=== PATIENT | female | born 1995 | race Caucasian/White ===

== ENCOUNTER 2017-05-25 08:25 | Observation (INO) ==
[2017-05-25 09:25] LABS: Bilirubin,Urine Small (Negative); Blood,Urine Negative (Negative); Clarity,Urine Cloudy (Clear); Glucose,Urine (UA) Normal (Normal); Ketones,Urine Negative (Negative); Leukocyte Esterase,Urine Trace (Negative); Nitrite,Urine Negative (Negative); Protein,Urine 30 mg/dL (Neg-Trace); Specific Gravity,Urine 1.028 (1.010-1.025); Urobilinogen,Urine Normal (Normal)
[2017-05-25 09:27] LABS: Bacteria,Urine Moderate per hpf (None-Few); Squamous Epithelial Cell,Urine Many per lpf (None-Few)
[2017-05-25 09:29] LABS: Color,Urine Amber (Yellow)
[2017-05-25 09:37] LABS: Hyaline Casts,Urine Few per lpf (None-Few)
[2017-05-25] MEDS ORDERED: *HR* Morphine 2 MG/ML SYRINGE IVP ONE ×2 (09:39→12:04)
[2017-05-25] MEDS ORDERED: 0.9 % Sodium Chloride 1,000 ML IVC ONE (09:39)
[2017-05-25] MEDS ORDERED: Ondansetron 4 MG/2 ML VIAL IVP ONE ×2 (09:39→12:04)
--- NOTE | 2017-05-25 09:42 | Emergency Department Note ---
Disposition Clinical Impression: Colitis, Nausea and vomiting Disposition: Admitted As Inpatient Condition: Fair Time of Disposition: 13:00 Abdominal Pain HPI - General Chief Complaint: ED Abdominal Pain Stated Complaint: ABD Pain Time Seen by Provider: 05/25/17 09:18 Source: patient Mode of arrival: ambulatory Limitations: no limitations Nursing Notes Reviewed: Yes Vital Signs Reviewed: Yes - History of Present Illness HPI Narrative: Nontoxic-appearing 21-year-old female presents for complaints of diffuse lower abdominal pain, nausea, and vomiting that began yesterday evening and have been persistent since. She states that she had a 3 day episode of similar symptoms earlier last week however that resolved and she assumed that it was "just a stomach bug". She became concerned when symptoms returned last night. She denies any fever, chills, urinary symptoms, hematochezia, melena, diarrhea, or constipation. She denies any vaginal bleeding or vaginal discharge. She denies any known sick contacts or recent foreign travel. Alleviating factors for this pain are none. She states that the pain is aggravated by movement, however not with certain types of food. Pt Subjective Complaint: abdominal pain Onset (ago): day(s) (Since yesterday evening) Consistency: Worsening Location: LLQ, RLQ, suprapubic Pain Severity: moderate Pain Scale: 6 Quality: sharp Radiation: none Migration to: no migration Improves with: nothing Worsens with: movement Associated symptoms: Reports: nausea, vomiting. Denies: diarrhea, fever, chills , constipation, dysuria, hematemesis, hematochezia, melena, hematuria Treatments prior to arrival: none - Related Data Home Medications Medication Instructions Recorded Confirmed Levonorgestrel [Mirena] 52 mg IY AD 05/25/17 05/25/17 Allergies Allergy/AdvReac Type Severity Reaction Status Date / Time No Known Allergies Allergy Verified 05/25/17 13:43 All systems ED: reviewed and negative except as stated. Constitutional: Denies: fever, chills, weakness, weight change Eyes: Denies: eye pain, eye discharge, vision change ENT ED: Denies: ear pain, throat pain, dental pain, hearing loss, epistaxis, congestion, dysphagia Cardiovascular: Denies: chest pain, palpitations, dyspnea on exertion, edema, syncope Respiratory: Denies: cough, dyspnea, wheezes, hemoptysis, stridor Gastrointestinal: Reports: as per HPI, abdominal pain, nausea, vomiting. Denies : diarrhea, constipation, hematemesis, melena, hematochezia Genitourinary: Denies: dysuria, frequency, hematuria, discharge Musculoskeletal: Denies: back pain, neck pain, arthralgia, myalgia Integumentary: Denies: rash, abrasion, lesions Neurological: Denies: headache, weakness, numbness, paresthesias, confusion, abnormal gait, vertigo Psychiatric: Denies: anxiety, depression, suicidal thoughts, homicidal thoughts , auditory hallucinations, visual hallucinations Endocrine: Denies: fatigue Hematological/Lymphatic: Denies: easy bleeding, easy bruising Allergic/Immunologic: Denies: facial swelling, urticaria Abdominal Pain PMH - Past Medical History Medical history: Reports: non-contributory Female Surgical History: Reports: no surgical history Psychiatric history: Reports: no psych history - Social History Smoking status: Current every day smoker Alcohol use: Reports: occasionally Drug use: Reports: none Physical Exam - General Limitations: no limitations General appearance: alert, in no apparent distress - Head Head exam: atraumatic, normocephalic, normal inspection - Eye Eye exam: Present: normal appearance, PERRL, EOMI. Absent: nystagmus - ENT ENT exam: mucous membranes dry - Neck Neck exam: Present: normal inspection, full ROM, trachea midline. Absent: lymphadenopathy - Chest Chest inspection: Present: normal inspection, symmetric chest wall rise - Respiratory Respiratory exam: Present: normal lung sounds bilaterally. Absent: respiratory distress, wheezes, stridor, accessory muscle use, prolonged expiratory phase - Cardiovascular Cardiovascular exam: Present: regular rate, normal rhythm, normal heart sounds - Abdominal Exam Abdominal exam: Present: soft, tenderness, normal bowel sounds. Absent: distention, guarding, rebound, rigidity, organomegaly, psoas sign, obturator sign, heel tap sign, tenderness at McBurney's Point - Extremities Exam Extremities exam: Present: normal inspection, full ROM. Absent: tenderness, pedal edema - Neurological Exam Neurological exam: Present: alert, oriented X3 - Psychiatric Psychiatric exam: Present: normal affect, normal mood - Skin Skin exam: Present: warm, dry, intact, normal color Course Course Narrative: I discussed this patient's case with Dr. Daniel. Dr. Daniel has had a face-to -face evaluation with the patient. 1143: I spoke with Dr. Concepcion, general surgeon security operations manager regarding Dr. Daniel's concerns for intussusception. Dr. Concepcion has reviewed the patient's CT imaging and states that he does not feel that this is an intussusception. He states that this is most likely inflammation from probable Crohn's disease. He recommends gastroenterology consult for further management and treatment. I have paged Dr. Solis, stereoptic projection topographer security operations manager and awaiting a return call at this time. 1258: I have had a [id number] discussion with Dr. Winston, internal medicine resident working with Dr. Solis, gastroenterology. Dr. Winston has consult with Dr. Rutledge and it has been recommended that the patient be started on Cipro, Flagyl, and admitted to the hospital service with a gastroenterology consult. Dr. Winston states that Dr. Solis will prep the patient for a colonoscopy 2-3 days. 1315: I spoke with Dr. Blackman of the hospitalist service. Dr. Blackman accepts the patient for admission to his service for further treatment of her colitis/ terminal ileitis with gastroenterology consult. Vital Signs Temperature 97.9 F 05/25/17 08:57 Pulse Rate 111 05/25/17 08:57 Respiratory Rate 18 05/25/17 08:57 Blood Pressure 134/93 05/25/17 08:57 O2 Sat by Pulse Oximetry 96 05/25/17 08:57 Temperature 97.8 F 05/25/17 15:29 Pulse Rate 71 05/25/17 15:29 Respiratory Rate 18 05/25/17 15:29 Blood Pressure 116/77 05/25/17 15:29 O2 Sat by Pulse Oximetry 98 05/25/17 15:29 Oxygen Delivery Oxygen Delivery Room Air Abdominal Pain - Medical Records Medical records reviewed: Yes I reviewed the patient's medical records. - Lab Data Lab results reviewed: Yes I reviewed the patient's lab results. Lab results narrative: Laboratory Last Values WBC 14.1 K/mcL (4.3-11.1) H 05/25/17 09:51 RBC 5.26 M/mcL (3.82-4.97) H 05/25/17 09:51 Hgb 15.0 g/dL (11.5-15.4) 05/25/17 09:51 Hct 44.3 % (35.3-44.9) 05/25/17 09:51 MCV 84.2 fL (83.0-100.0) 05/25/17 09:51 MCH 28.5 pg (28.0-33.3) 05/25/17 09:51 MCHC 33.9 g/dL (31.6-35.5) 05/25/17 09:51 RDW 12.6 % (11.5-14.5) 05/25/17 09:51 Plt Count 380 K/mcL (140-400) 05/25/17 09:51 MPV 9.3 fL (9.4-12.4) L 05/25/17 09:51 Immature Gran % 0.4 % (0-4) 05/25/17 09:51 Seg Neutrophils % 78.9 % 05/25/17 09:51 Lymphocytes % 15.2 % 05/25/17 09:51 Monocytes % 5.1 % 05/25/17 09:51 Eosinophils % 0.3 % 05/25/17 09:51 Basophils % 0.1 % 05/25/17 09:51 Neutrophils # 11.1 K/mcL (1.6-8.9) H 05/25/17 09:51 Lymphocytes # 2.1 K/mcL (0.6-4.6) 05/25/17 09:51 Monocytes # 0.7 K/mcL (0.0-1.3) 05/25/17 09:51 Eosinophils # 0.0 K/mcL (0.0-0.6) 05/25/17 09:51 Basophils # 0.0 K/mcL (0.0-0.2) 05/25/17 09:51 Immature Plt Fraction 2.4 % (1.1-6.1) 05/25/17 09:51 Sodium 140 mEq/L (136-145) 05/25/17 09:51 Potassium 3.8 mEq/L (3.5-4.5) 05/25/17 09:51 Chloride 106 mEq/L (98-109) 05/25/17 09:51 Carbon Dioxide 21 mEq/L (19-29) 05/25/17 09:51 BUN 7 mg/dL (7-20) 05/25/17 09:51 Creatinine 0.74 mg/dL (0.57-1.11) 05/25/17 09:51 Est GFR ( Amer) > 60 (> 60) 05/25/17 09:51 Est GFR (Non-Af Amer) > 60 (> 60) 05/25/17 09:51 BUN/Creatinine Ratio 9 (6-26) 05/25/17 09:51 Glucose 119 mg/dL (70-99) H 05/25/17 09:51 Calculated Osmolality 289 (280-300) 05/25/17 09:51 Lactic Acid 1.1 mmol/L (0.5-2.2) 05/25/17 09:51 Calcium 9.5 mg/dL (8.6-10.8) 05/25/17 09:51 Total Bilirubin 0.9 mg/dL (0.2-1.2) 05/25/17 09:51 Direct Bilirubin 0.3 mg/dL (0.0-0.5) 05/25/17 09:51 Indirect Bilirubin 0.6 mg/dL (0.0-1.2) 05/25/17 09:51 AST 19 Units/L (5-34) 05/25/17 09:51 ALT 37 Units/L (0-55) 05/25/17 09:51 Alkaline Phosphatase 91 Units/L (38-126) 05/25/17 09:51 Serum Total Protein 8.1 g/dL (6.0-8.3) 05/25/17 09:51 Albumin 3.5 g/dL (3.5-5.0) 05/25/17 09:51 Globulin 4.6 g/dL (2.4-3.5) H 05/25/17 09:51 Albumin/Globulin Ratio 0.8 (1.1-2.2) L 05/25/17 09:51 Amylase 48 Units/L (25-125) 05/25/17 09:51 Lipase 16 Units/L (8-78) 05/25/17 09:51 Urine Color Olga (Yellow) A 05/25/17 09:08 Urine Clarity Cloudy (Clear) A 05/25/17 09:08 Urine pH 6.0 pH Units (5.0-8.0) 05/25/17 09:08 Ur Specific [place] 1.028 (1.010-1.025) H 05/25/17 09:08 Urine Protein 30 mg/dL (Neg-Trace) H 05/25/17 09:08 Urine Glucose (UA) Normal mg/dL (Normal) 05/25/17 09:08 Urine Ketones Negative mg/dL (Negative) 05/25/17 09:08 Urine Blood Negative (Negative) 05/25/17 09:08 Urine Nitrite Negative (Negative) 05/25/17 09:08 Urine Bilirubin Small (Negative) H 05/25/17 09:08 Urine Urobilinogen Normal mg/dL (Normal) 05/25/17 09:08 Ur Leukocyte Esterase Trace (Negative) H 05/25/17 09:08 Urine Microscopic WBC 5-15 per hpf (0-3) H 05/25/17 09:08 Ur Squamous Epith Cells Many per lpf (None-Few) H 05/25/17 09:08 Urine Bacteria Moderate per hpf (None-Few) H 05/25/17 09:08 Hyaline Casts Few per lpf (None-Few) 05/25/17 09:08 Ur Culture Indicated? YES (NO) A 05/25/17 09:08 Urine Test Negative (Negative) 05/25/17 09:08 Result diagrams: 05/25/17 09:51 05/25/17 09:51 Lab Results 05/25/17 05/25/17 05/25/17 Range/Units 09:08 09:08 09:51 WBC 14.1 H (4.3-11.1) K/mcL RBC 5.26 H (3.82-4.97) M/mcL Hgb 15.0 (11.5-15.4) g/dL Hct 44.3 (35.3-44.9) % MCV 84.2 (83.0-100.0) fL MCH 28.5 (28.0-33.3) pg MCHC 33.9 (31.6-35.5) g/dL RDW 12.6 (11.5-14.5) % Plt Count 380 (140-400) K/mcL MPV 9.3 L (9.4-12.4) fL Immature Gran % 0.4 (0-4) % Seg Neutrophils % 78.9 % Lymphocytes % 15.2 % Monocytes % 5.1 % Eosinophils % 0.3 % Basophils % 0.1 % Neutrophils # 11.1 H (1.6-8.9) K/mcL Lymphocytes # 2.1 (0.6-4.6) K/mcL Monocytes # 0.7 (0.0-1.3) K/mcL Eosinophils # 0.0 (0.0-0.6) K/mcL Basophils # 0.0 (0.0-0.2) K/mcL Immature Plt Fraction 2.4 (1.1-6.1) % Sodium (136-145) mEq/L Potassium (3.5-4.5) mEq/L Chloride (98-109) mEq/L Carbon Dioxide (19-29) mEq/L BUN (7-20) mg/dL Creatinine (0.57-1.11) mg/dL Est GFR ( Amer) (> 60) Est GFR (Non-Af Amer) (> 60) BUN/Creatinine Ratio (6-26) Glucose (70-99) mg/dL Calculated Osmolality (280-300) Lactic Acid (0.5-2.2) mmol/L Calcium (8.6-10.8) mg/dL Total Bilirubin (0.2-1.2) mg/dL Direct Bilirubin (0.0-0.5) mg/dL Indirect Bilirubin (0.0-1.2) mg/dL AST (5-34) Units/L ALT (0-55) Units/L Alkaline Phosphatase (38-126) Units/L Serum Total Protein (6.0-8.3) g/dL Albumin (3.5-5.0) g/dL Globulin (2.4-3.5) g/dL Albumin/Globulin Ratio (1.1-2.2) Amylase (25-125) Units/L Lipase (8-78) Units/L Urine Color Olga A (Yellow) Urine Clarity Cloudy A (Clear) Urine pH 6.0 (5.0-8.0) pH Units Ur Specific [place] 1.028 H (1.010-1.025) Urine Protein 30 H (Neg-Trace) mg/dL Urine Glucose (UA) Normal (Normal) mg/dL Urine Ketones Negative (Negative) mg/dL Urine Blood Negative (Negative) Urine Nitrite Negative (Negative) Urine Bilirubin Small H (Negative) Urine Urobilinogen Normal (Normal) mg/dL Ur Leukocyte Esterase Trace H (Negative) Urine Microscopic WBC 5-15 H (0-3) per hpf Ur Squamous Epith Cells Many H (None-Few) per lpf Urine Bacteria Moderate H (None-Few) per hpf Hyaline Casts Few (None-Few) per lpf Ur Culture Indicated? YES A (NO) Urine Test Negative (Negative) 05/25/17 05/25/17 Range/Units 09:51 09:51 WBC (4.3-11.1) K/mcL RBC (3.82-4.97) M/mcL Hgb (11.5-15.4) g/dL Hct (35.3-44.9) % MCV (83.0-100.0) fL MCH (28.0-33.3) pg MCHC (31.6-35.5) g/dL RDW (11.5-14.5) % Plt Count (140-400) K/mcL MPV (9.4-12.4) fL Immature Gran % (0-4) % Seg Neutrophils % % Lymphocytes % % Monocytes % % Eosinophils % % Basophils % % Neutrophils # (1.6-8.9) K/mcL Lymphocytes # (0.6-4.6) K/mcL Monocytes # (0.0-1.3) K/mcL Eosinophils # (0.0-0.6) K/mcL Basophils # (0.0-0.2) K/mcL Immature Plt Fraction (1.1-6.1) % Sodium 140 (136-145) mEq/L Potassium 3.8 (3.5-4.5) mEq/L Chloride 106 (98-109) mEq/L Carbon Dioxide 21 (19-29) mEq/L BUN 7 (7-20) mg/dL Creatinine 0.74 (0.57-1.11) mg/dL Est GFR ( Amer) > 60 (> 60) Est GFR (Non-Af Amer) > 60 (> 60) BUN/Creatinine Ratio 9 (6-26) Glucose 119 H (70-99) mg/dL Calculated Osmolality 289 (280-300) Lactic Acid 1.1 (0.5-2.2) mmol/L Calcium 9.5 (8.6-10.8) mg/dL Total Bilirubin 0.9 (0.2-1.2) mg/dL Direct Bilirubin 0.3 (0.0-0.5) mg/dL Indirect Bilirubin 0.6 (0.0-1.2) mg/dL AST 19 (5-34) Units/L ALT 37 (0-55) Units/L Alkaline Phosphatase 91 (38-126) Units/L Serum Total Protein 8.1 (6.0-8.3) g/dL Albumin 3.5 (3.5-5.0) g/dL Globulin 4.6 H (2.4-3.5) g/dL Albumin/Globulin Ratio 0.8 L (1.1-2.2) Amylase 48 (25-125) Units/L Lipase 16 (8-78) Units/L Urine Color (Yellow) Urine Clarity (Clear) Urine pH (5.0-8.0) pH Units Ur Specific [place] (1.010-1.025) Urine Protein (Neg-Trace) mg/dL Urine Glucose (UA) (Normal) mg/dL Urine Ketones (Negative) mg/dL Urine Blood (Negative) Urine Nitrite (Negative) Urine Bilirubin (Negative) Urine Urobilinogen (Normal) mg/dL Ur Leukocyte Esterase (Negative) Urine Microscopic WBC (0-3) per hpf Ur Squamous Epith Cells (None-Few) per lpf Urine Bacteria (None-Few) per hpf Hyaline Casts (None-Few) per lpf Ur Culture Indicated? (NO) Urine Test (Negative) - Radiology Data Radiology results reviewed: Yes I reviewed the patient's radiology results. Abdomen/Pelvis CT 05/25/17 10:16 IMPRESSION: There is circumferential wall thickening of the terminal ileum with a secondary suspected partial small bowel obstruction. Adjacent inflammatory change is seen within the mesentery, as well as several small reactive lymph nodes. There is also mild wall thickening of the cecum adjacent to the ileocecal valve. These changes could be related to underlying infectious or inflammatory enteritis, with Crohn's disease in the differential. Probable benign adnexal cyst on the left measuring 3.6 cm in size. Recommend a follow-up ultrasound in 6-12 weeks per ACR criteria for a premenopausal female given the size of the lesion. D/ / Tee Oshea MD / Tee Oshea MD Interpreting Provider: Tee Oshea MD Attestation Statement - Attestation Attestation: I, Leonid Daniel DO have provided [id number] time during the care of this patient. Detailed review the presentation, symptoms, medical history were discussed and reviewed with the mid-level provider Anup Ovalle PA-C/BAHMAN. Medical intervention labs and imaging studies were reviewed in detail. See full documentation of physical exam and course of care in the mid-level provider 's note. I agree with the determined course of care, medical intervention and disposition put forth by the mid-level provider. See below documentation for changes or alterations in documentation. 21-year-old female presents emergency room complaint of abdominal pain. She has had symptoms on and off for over a week but now they have isolated in the right lower quadrant the abdomen. She has difficulty with eating and drinking but has still been taking in by mouth fluids. Patient denies any concerns for vaginal discharge, sexual transmitted diseases or . She denies any concern for new sexual partners. Vital signs reviewed and showed tachycardia but otherwise are unremarkable. Patient will have fluids provided etiology medication pain medication while here. She will also have screening laboratory workup including urinalysis urine test CBC LFTs and lipase. She will then have CT imaging of the abdomen for definitive evaluation of her lower abdominal discomfort. She does not have any history of ovarian cysts. Clinical concern for ovarian torsion. She does not have pain in the adnexa. We will continue to monitor his treatment course is completed. See detailed documentation of the physical exam, medical intervention, medical decision- making and disposition in the mid-level provider's note 1100 Patient has concerning findings on CAT scan for possible bowel obstruction versus inflammatory changes. Patient was consults of the on-call surgeon. Recommend admission for symptomatic control and gastroenterology follow-up and further evaluation. No other concerns or issues noted in the treatment course and consultations. Patient stable to time of admission.
[2017-05-25 09:57] LABS: Basophils % 0.1 %; Eosinophils % 0.3 %; Hematocrit 44.3 % (35.3-44.9); Immature Granulocytes % 0.4 % (0-4); Immature Platelets 2.4 % (1.1-6.1); Lymphocytes # 2.1 K/mcL (0.6-4.6); Lymphocytes % 15.2 %; Mean Corpuscular HGB Conc 33.9 g/dL (31.6-35.5); Mean Corpuscular Hemoglobin 28.5 pg (28.0-33.3); Mean Corpuscular Volume 84.2 fL (83.0-100.0); Mean Platelet Volume 9.3 fL (9.4-12.4); Monocytes # 0.7 K/mcL (0.0-1.3); Monocytes % 5.1 %; Neutrophils # 11.1 K/mcL (1.6-8.9); Platelet Count 380 K/mcL (140-400); Red Blood Count 5.26 M/mcL (3.82-4.97); Red Cell Distribution Width 12.6 % (11.5-14.5); Segmented Neutrophils % 78.9 %
[2017-05-25 10:11] LABS: Alanine Aminotransferase 37 Units/L (0-55); Albumin 3.5 g/dL (3.5-5.0); Albumin/Globulin Ratio 0.8 (1.1-2.2); Alkaline Phosphatase 91 Units/L (38-126); Amylase 48 Units/L (25-125); Aspartate Amino Transferase 19 Units/L (5-34); BUN/Creatinine Ratio 9 (6-26); Bilirubin,Direct 0.3 mg/dL (0.0-0.5); Bilirubin,Indirect 0.6 mg/dL (0.0-1.2); Bilirubin,Total 0.9 mg/dL (0.2-1.2); Blood Urea Nitrogen 7 mg/dL (7-20); Calcium 9.5 mg/dL (8.6-10.8); Carbon Dioxide 21 mEq/L (19-29); Chloride 106 mEq/L (98-109); Globulin 4.6 g/dL (2.4-3.5); Glucose 119 mg/dL (70-99); Lipase 16 Units/L (8-78); Osmolality,Calculated 289 (280-300); Potassium 3.8 mEq/L (3.5-4.5); Sodium 140 mEq/L (136-145); Total Protein 8.1 g/dL (6.0-8.3); eGFR For African Americans > 60 (> 60); eGFR For Non-African Americans > 60 (> 60)
[2017-05-25] MEDS ORDERED: MetroNIDAZOLE 500 MG/100 ML 500 MG/100 ML BAG IVPB ONE (12:56)
--- NOTE | 2017-05-25 13:22 | Gastroenterology Consult Note ---
<Ariel Winston - Last Filed: 05/25/17 13:19> Date of Encounter: 05/25/17 Time of Encounter: 13:19 - Assessment and plan (1) Colitis Current Visit: Yes Status: Acute Assessment and plan: 21-year-old female with chronic diarrhea for greater than 5 months with change in symptoms to fevers chills diaphoresis abdominal pain and bloating constipation. No previous gastrointestinal diagnosis. - White blood cell count 14, neutrophil count 11.1, the rest of her laboratory results are nonsignificant. - Vitals are stable - CT of the abdomen and pelvis demonstrated circumferential wall thickening of the terminal ileum with a secondary suspected partial small bowel obstruction adjacent inflammatory changes of the mesentery, mild wall thickening of the cecum adjacent to the ileocecal valve. This is less likely to be viral or actual real in nature as this length that symptoms have been going on for roughly 5 months. Stool cultures to monitor for other significant factors such as CMV, parasite etiology. She will likely require colonoscopy with biopsies for evaluation for potential inflammatory bowel disease. Plan: - We will obtain stool cultures - Continue current antibiotic coverage and patient - Patient may require colonoscopy after further evaluation. - Time Spent With Patient Total time spent is greater than 50% in coordination of care (as documented) at patient's floor/unit and/or counseling patient: GI History of Present Illness - Data of Consult Consult date: 05/25/17 - Consult Narrative Reason for consult: colitis History of present illness: Ms. Dailey is a 21 year old female without significant past medical history presented to the emergency department with abdominal pain nausea and vomiting for roughly 1 week. Ms. Dailey states that roughly 5-6 months ago she started having diarrhea with roughly 5 loose stools per day and had been seen in the urgent care and was recommended to follow-up with gastroenterology if her symptoms continued. She never followed up but states that her diarrhea continued with having 5 loose stools per day occasionally preceded by urgency without abdominal pain, fevers chills nausea or bloating. She denies ever having blood in her stool, change in texture to dark or tarry in nature. Roughly one week ago she had an abrupt onset of lower abdominal pain described as aching and sharp associated with anorexia, nausea and vomiting. She states that she has been constipated for almost a full week since the symptoms started and had abdominal bloating, fevers chills and diaphoresis. She denies any stools today. She does not take any medications for her symptoms and denies recently being on any medications. She denies any previous gastrointestinal diagnosis, denies knowing of any preceding antibiotic use, acute illness or ingestion of new foods. She denies any major changes to her diet or addition of any new foods. With regarding her family history she denies any known relatives to have history of colon cancer, rectal bleeding, Crohn's or ulcerative colitis, or any family members with diarrhea. She waited until today to present to the emergency department due to lack of transportation. Colonoscopy: Denies previous history EGD: Denies previous history Past Med Surg Social Fam HX - Past Medical History Medical history: non-contributory Psychiatric history: no psych history - Past Surgical History Surgical History: non-contributory - Social History Smoking Status: Current every day smoker Smokeless Tobacco Status: No Alcohol use: occasionally Drug use: none - Gastrointestinal Gastrointestinal: Present: abdominal pain, bloating, change in bowel habits, constipation, diarrhea, nausea, vomiting. Absent: dyspepsia, heartburn, hematemesis, hematochezia, melena - Constitutional Constitutional: anorexia, no weight gain, no weight loss - EENT Nose, mouth and throat: Absent: dysphagia, sore throat - Cardiovascular Cardiovascular ROS: Absent: chest pain, irregular heart rhythm, palpitations - Respiratory Respiratory IM: Absent: cough, dyspnea, hemoptysis - Genitourinary Genitourinary: Absent: change in color, Urinary frequency - Neurological ROS Neurological GI: Absent: confusion, dizziness, headache(s) - Musculoskeletal Musculoskeletal ROS GI: Absent: back pain, joint swelling - Integumentary Integumentary GI: Absent: jaundice, pruritis, rash - Constitutional Vitals: Temp Pulse Resp BP Pulse Ox 97.9 F 73 18 128/78 96 05/25/17 08:57 05/25/17 12:48 05/25/17 12:48 05/25/17 12:48 05/25/17 12:48 General appearance: Present: cooperative, A&O X 3, pleasant, no acute distress Exam: General: Patient alert, awake, oriented 3, interactive, in no acute distress HEENT: Normocephalic, atraumatic, pupils equal reactive to light, neck supple trachea midline no palpable lymphadenopathy, no thyromegaly. Chest: Symmetric bilateral correlating with respiratory effort, effort nonlabored. Cardiac: Regular rate and rhythm, positive S1 and S2. no bruits appreciated bilateral carotids, Radial pulses 2+ bilateral, posterior tibial and dorsal pedal pulses 2+ bilateral. Respiratory: Clear to auscultation all lung burns Abdomen: Soft, nontender, positive bowel sounds, no palpable masses appreciated on examination Extremities: Symmetric bilateral, bilateral lower extremities without erythema or edema patient moving all 4 extremities spontaneously. Scars on bilateral wrists with previous history of cutting, no new noticeable lesions. Neurologic: No focal deficits appreciated on examination. Face symmetric, muscle strength symmetric bilateral upper and lower extremities. Results - Labs CBC & Chem 7: 05/25/17 09:51 11 09:51 Labs: Last Result Calcium 9.5 mg/dL (8.6-10.8) 05/25/17 09:51 Entire Visit Hgb 15.0 g/dL (11.5-15.4) 05/25/17 09:51 Hct 44.3 % (35.3-44.9) 05/25/17 09:51 Total Bilirubin 0.9 mg/dL (0.2-1.2) 05/25/17 09:51 AST 19 Units/L (5-34) 05/25/17 09:51 ALT 37 Units/L (0-55) 05/25/17 09:51 Amylase 48 Units/L (25-125) 05/25/17 09:51 Lipase 16 Units/L (8-78) 05/25/17 09:51 - Impressions Impressions Abdomen/Pelvis CT 05/25/17 10:16 IMPRESSION: There is circumferential wall thickening of the terminal ileum with a secondary suspected partial small bowel obstruction. Adjacent inflammatory change is seen within the mesentery, as well as several small reactive lymph nodes. There is also mild wall thickening of the cecum adjacent to the ileocecal valve. These changes could be related to underlying infectious or inflammatory enteritis, with Crohn's disease in the differential. Probable benign adnexal cyst on the left measuring 3.6 cm in size. Recommend a follow-up ultrasound in 6-12 weeks per ACR criteria for a premenopausal female given the size of the lesion. D/ / Tee Oshea MD / Tee Oshea MD Interpreting Provider: Tee Oshea MD Consult Discharge Plan - Plan <Cj Solis - Last Filed: 05/25/17 18:01> Date of Encounter: 05/25/17 Time of Encounter: 13:20 - Time Spent With Patient Total time spent is greater than 50% in coordination of care (as documented) at patient's floor/unit and/or counseling patient: GI History of Present Illness - Data of Consult Requesting Physician: Vic Oliveira MD - Consult Narrative History of present illness: Ms. Dailey is a 21 year old female - Constitutional Vitals: Temp Pulse Resp BP Pulse Ox 97.8 F 71 18 116/77 98 05/25/17 15:29 05/25/17 15:29 05/25/17 15:29 05/25/17 15:29 05/25/17 15:29 Results - Labs CBC & Chem 7: 05/25/17 09:51 05/25/17 09:51 Labs: Last Result Calcium 9.5 mg/dL (8.6-10.8) 05/25/17 09:51 Entire Visit Hgb 15.0 g/dL (11.5-15.4) 05/25/17 09:51 Hct 44.3 % (35.3-44.9) 05/25/17 09:51 Total Bilirubin 0.9 mg/dL (0.2-1.2) 05/25/17 09:51 AST 19 Units/L (5-34) 05/25/17 09:51 ALT 37 Units/L (0-55) 05/25/17 09:51 Amylase 48 Units/L (25-125) 05/25/17 09:51 Lipase 16 Units/L (8-78) 05/25/17 09:51 - Attending Attestation I examined this patient and my medical decision-making was reviewed with the Resident Physician. I agree with the documented findings, disposition and treatment plan as described except to the extent set forth below. Patient with long-standing history of chronic diarrhea, now with the vomiting and abdominal pain along with being constipated with CT finding of enteritis. Finding are suspicious for Crohn disease. Recommendation: Crohn serology, stool studies and the fluid along with the IV antibiotics. patient will need a colonoscopy in the next few days along with biopsies of terminal ileum
[2017-05-25] MEDS ORDERED: Ondansetron 4 MG/2 ML VIAL IVP PRN (14:42)
--- NOTE | 2017-05-25 14:50 | Internal Med History&Physical ---
Date of Encounter: 05/25/17 Time of Encounter: 14:57 Assessment and Plan (1) Terminal ileitis Current visit: Yes Status: Acute Recurrent lower abdominal pain vomiting fevers and chills. Will rule out infectious causes. Check stool studies for bacteria, overall, parasites, blood. Consider inflammatory bowel disease in the differential. Gastroenterology service on board. We will keep patient for now on ciprofloxacin on Flagyl. Keep NPO hydrate. Imaging shows small bowel dilation , no need for NG tube placement. Heparin and famotidine for DVT and peptic ulcer disease prophylaxis respectively. Qualifiers: Qualified Code(s): K50.00 - Crohn's disease of small intestine without complications (2) Ovarian cyst Current visit: Yes Status: Acute Patient has benign ovarian cyst. Outpatient follow up Qualifiers: Qualified Code(s): N83.209 - Unspecified ovarian cyst, unspecified side Internal Medicine - H&P: HPI Chief complaint: abdominal pain History of present illness: Ms. Dailey is a 21 year old female presented emergency room today with a main component of abdominal pain. For the past 2 days patient has been having pain across lower abdomen associated with bilious vomiting, subjective fevers and chills. Patient was unable to eat or keep food down. She denies diarrhea, hematemesis melena or hematochezia. She had similar problems a week earlier. She denies any family history of inflammatory bowel disease. No recent travel or sick contacts. Past Med Surg Social Fam HX - Past Medical History Medical history: non-contributory Psychiatric history: no psych history - Past Surgical History Surgical History: non-contributory - Social History Smoking Status: Current every day smoker Packs per day: 1 Smokeless Tobacco Status: No Alcohol use: none Drug use: none - Family History Mother History Unknown: Yes Internal Medicine - H&P: Meds Levonorgestrel [Mirena] 52 mg IY AD 05/25/17 [History] 3 Allergy/AdvReac Type Severity Reaction Status Date / Time No Known Allergies Allergy Verified 05/25/17 13:43 All Systems PM: A 10-system review of systems was performed and is negative for pertinent findings except as documented above in the HPI. Review of systems: 10 point review of systems is negative except for HPI - Constitutional Vitals: Temp Pulse Resp BP Pulse Ox 97.9 F 73 16 136/81 96 05/25/17 08:57 05/25/17 12:48 05/25/17 14:02 05/25/17 14:02 05/25/17 12:48 Exam: Gen.: patient is alert oriented times 3 cardiac: normal S1 S2 no additional sounds or murmurs chest: no active wheezing or bronchial breathing abdomen tenderness across lower abdomen, no rebound or guarding lower extremity no swelling. Neuro: no new focal deficits Internal Med - H&P Results - Labs CBC & Chem 7: 05/25/17 09:51 05/25/17 09:51
[2017-05-25] MEDS: Nicotine 21 MG PATCH.TD24 TD SCH (17:48)
[2017-05-25] MEDS: Famotidine 20 MG/2 ML VIAL IVP SCH (17:48)
[2017-05-25] MEDS: D5% in 0.9% NACL 1,000 ML IVC SCH (17:49)
[2017-05-25] MEDS: *HR* Morphine 2 MG/ML SYRINGE IVP PRN ×2 (17:57→23:05)
[2017-05-25] MEDS: *HR* Heparin 5,000 UNIT/ML VIAL SQ SCH (18:01)
[2017-05-25] MEDS: MetroNIDAZOLE 500 MG/100 ML 500 MG/100 ML BAG IVPB SCH (21:32)
[2017-05-26] MEDS: *HR* Morphine 2 MG/ML SYRINGE IVP PRN ×3 (04:12→16:14)
[2017-05-26 04:14] LABS: Basophils % 0.3 %; Eosinophils # 0.1 K/mcL (0.0-0.6); Eosinophils % 1.4 %; Hematocrit 39.2 % (35.3-44.9); Hemoglobin 12.9 g/dL (11.5-15.4); Immature Granulocytes % 0.6 % (0-4); Lymphocytes # 3.2 K/mcL (0.6-4.6); Lymphocytes % 35.2 %; Mean Corpuscular HGB Conc 32.9 g/dL (31.6-35.5); Mean Corpuscular Volume 85.2 fL (83.0-100.0); Mean Platelet Volume 9.7 fL (9.4-12.4); Monocytes # 0.7 K/mcL (0.0-1.3); Monocytes % 8.1 %; Neutrophils # 4.9 K/mcL (1.6-8.9); Platelet Count 279 K/mcL (140-400); Red Cell Distribution Width 12.6 % (11.5-14.5); Segmented Neutrophils % 54.4 %
[2017-05-26 04:30] LABS: Alanine Aminotransferase 38 Units/L (0-55); Albumin 2.9 g/dL (3.5-5.0); Albumin/Globulin Ratio 0.8 (1.1-2.2); Alkaline Phosphatase 73 Units/L (38-126); Aspartate Amino Transferase 28 Units/L (5-34); BUN/Creatinine Ratio 11 (6-26); Bilirubin,Total 0.8 mg/dL (0.2-1.2); Blood Urea Nitrogen 7 mg/dL (7-20); C-Reactive Protein 23 mg/L (Less than 5); Carbon Dioxide 23 mEq/L (19-29); Chloride 108 mEq/L (98-109); Globulin 3.6 g/dL (2.4-3.5); Glucose 97 mg/dL (70-99); Magnesium 1.9 mg/dL (1.6-2.6); Osmolality,Calculated 288 (280-300); Potassium 3.5 mEq/L (3.5-4.5); Sodium 140 mEq/L (136-145); Total Protein 6.5 g/dL (6.0-8.3); eGFR For African Americans > 60 (> 60); eGFR For Non-African Americans > 60 (> 60)
[2017-05-26] MEDS: MetroNIDAZOLE 500 MG/100 ML 500 MG/100 ML BAG IVPB SCH ×2 (05:17→11:11)
[2017-05-26] MEDS: Famotidine 20 MG/2 ML VIAL IVP SCH ×2 (05:19→16:14)
[2017-05-26] MEDS: *HR* Heparin 5,000 UNIT/ML VIAL SQ SCH ×2 (05:23→17:02)
[2017-05-26] MEDS: Nicotine 21 MG PATCH.TD24 TD SCH (09:19)
[2017-05-26] MEDS ORDERED: SODIUM CHLORIDE/NAHCO3/KCL/PEG 4,000 ML SOLN.RECON PO ONE (09:46)
[2017-05-26] MEDS: D5% in 0.9% NACL 1,000 ML IVC SCH (11:11)
--- NOTE | 2017-05-26 14:07 | Internal Med Progress Note ---
Date of Encounter: 05/26/17 Time of Encounter: 08:00 - Assessment and plan (1) Terminal ileitis Current Visit: Yes Status: Acute Assessment and plan: Lucy Dailey is a 21-year-old female with no significant past medical history who presented to [facility] on 05/25/17 with complaints of abdominal pain and loose stool. She was found to have colitis and was admitted for GI evaluation and further workup and treatment. 1. Colitis: Symptomatic with abdominal pain and loose stool for 3-4 months prior to admission. A/P CT showed circumferential wall thickening of the terminal ileum with a suspected partial small bowel obstruction and adjacent inflammatory changes of the mesentery, mild wall thickening of the cecum adjacent to the ileocecal valve. Continue IV Cipro, Flagyl. Evaluated by GI and C-scope planned. Stool studies pending. 2. Ovarian cyst: ABD CT with probable left benign adnexal cyst measuring 3.6 cm. Will need repeat ultrasound in 6-12 weeks per ACR criteria for a premenopausal female given the size of the lesion 3. DVT prophylaxis: Heparin Qualifiers: Qualified Code(s): K50.00 - Crohn's disease of small intestine without complications (2) Ovarian cyst Current Visit: Yes Status: Acute Qualifiers: Qualified Code(s): N83.209 - Unspecified ovarian cyst, unspecified side - Subjective Interval history: Patient is due to me. Information obtained from chart review and patient report. Patient is resting with both eyes. Denies pain at this time. Says she has had intermittent abdominal pain and loose stool. No oral lesions. No family history of inflammatory bowel disease. - Constitutional Vitals: Temp Pulse Resp BP Pulse Ox 97.4 F L 64 16 104/70 99 05/26/17 10:22 05/26/17 10:22 05/26/17 10:22 05/26/17 10:22 05/26/17 10:22 General appearance: Present: A&O X 3, morbidly obese, no acute distress, answers questions appropriately - Head Head exam: Present: atraumatic, normocephalic - Eye Eye exam: Present: PERRL, conjuntiva pink, sclera anicteric Pupils: Present: PERRL - Neck Neck exam general surgery: Present: supple, trachea midline. Absent: lymphadenopathy - Respiratory Respiratory exam: Present: CTAB. Absent: accessory muscle use, rales, rhonchi, wheezes - Cardiovascular Cardiovascular exam: Present: RRR, +S1, +S2. Absent: diastolic murmur, gallop, rubs, systolic murmur - GI/Abdominal GI/Abdominal exam: Present: normal bowel sounds, soft, no peritoneal signs. Absent: distended, tenderness - Extremities Exam Extremities exam: Present: warm, radial pulses palpable and symmetrical. Absent : calf tenderness, cyanotic, pedal edema - Neurological Exam Neurological exam: Present: CN II-XII intact, oriented X3, no focal deficits. Absent: pronater drift, facial droop, speech deficit - Skin Skin exam: Present: dry, intact Internal Medicine: Result - Labs CBC & Chem 7: 05/26/17 03:51 05/26/17 03:51 Labs: Short CBC 05/26/17 Range/Units 03:51 WBC 9.0 (4.3-11.1) K/mcL Hgb 12.9 D (11.5-15.4) g/dL Hct 39.2 (35.3-44.9) % Plt Count 279 (140-400) K/mcL Neutrophils # 4.9 (1.6-8.9) K/mcL BMP 05/26/17 03:51 Sodium 140 Potassium 3.5 Chloride 108 Carbon Dioxide 23 BUN 7 Creatinine 0.66 Glucose 97 Calcium 9.0 Liver Function 05/26/17 Range/Units 03:51 Total Bilirubin 0.8 (0.2-1.2) mg/dL AST 28 (5-34) Units/L ALT 38 (0-55) Units/L Alkaline Phosphatase 73 (38-126) Units/L Albumin 2.9 L (3.5-5.0) g/dL Consult Discharge Plan - Plan Referrals: Win Mccollum MD [Primary Care Provider] -
[2017-05-26] MEDS ORDERED: Polyethylene Glycol 3350 255 GM POWDER PO ONE (17:58)
[2017-05-27] MEDS: MetroNIDAZOLE 500 MG/100 ML 500 MG/100 ML BAG IVPB SCH ×3 (00:09→14:00)
[2017-05-27] MEDS: *HR* Morphine 2 MG/ML SYRINGE IVP PRN ×2 (00:24→04:51)
[2017-05-27] MEDS: *HR* Heparin 5,000 UNIT/ML VIAL SQ SCH (04:50)
[2017-05-27] MEDS: Famotidine 20 MG/2 ML VIAL IVP SCH (04:50)
[2017-05-27] MEDS: D5% in 0.9% NACL 1,000 ML IVC SCH (04:50)
[2017-05-27 05:01] LABS: BUN/Creatinine Ratio 7 (6-26); Calcium 8.5 mg/dL (8.6-10.8); Carbon Dioxide 21 mEq/L (19-29); Chloride 111 mEq/L (98-109); Glucose 94 mg/dL (70-99); Osmolality,Calculated 287 (280-300); Potassium 3.4 mEq/L (3.5-4.5); Sodium 140 mEq/L (136-145); eGFR For African Americans > 60 (> 60); eGFR For Non-African Americans > 60 (> 60)
[2017-05-27 05:04] LABS: Blood Urea Nitrogen 4 mg/dL (7-20)
[2017-05-27 05:12] LABS: Hematocrit 38.2 % (35.3-44.9); Hemoglobin 12.7 g/dL (11.5-15.4); Mean Corpuscular HGB Conc 33.2 g/dL (31.6-35.5); Mean Corpuscular Hemoglobin 28.2 pg (28.0-33.3); Mean Corpuscular Volume 84.9 fL (83.0-100.0); Mean Platelet Volume 9.8 fL (9.4-12.4); Platelet Count 289 K/mcL (140-400); Red Cell Distribution Width 12.3 % (11.5-14.5)
[2017-05-27] MEDS: Nicotine 21 MG PATCH.TD24 TD SCH (08:50)
[2017-05-27] MEDS ORDERED: *HR* FentaNYL (PF) 100 MCG/2 ML VIAL ONE (11:46)
[2017-05-27] MEDS ORDERED: *HR* Midazolam HCl 5 MG/5 ML VIAL IVP ONE ×2 (11:46→17:53)
[2017-05-27 14:26] VITALS: BP 120/75
[2017-05-27] MEDS ORDERED: methylPREDNISolone 125 MG/2 ML VIAL IVP ONE (15:42)
--- NOTE | 2017-05-27 15:43 | Discharge Summary ---
Date of Encounter: 05/27/17 Time of Encounter: 15:47 - Discharge Diagnosis (1) Terminal ileitis Priority: Primary Status: Acute Comments: Lucy Dailey is a 21-year-old female with no significant past medical history who presented to [facility] on 05/25/17 with complaints of abdominal pain and loose stool. She was found to have colitis and was admitted for GI evaluation and further workup and treatment. 1. Crohn's disease with ileitis: suspected. Symptomatic with abdominal pain and loose stool for 3-4 months prior to admission. A/P CT showed circumferential wall thickening of the terminal ileum with inflammatory changes of the mesentery and mild wall thickening of the cecum adjacent to the ileocecal valve. IV Cipro, Flagyl started on arrival. 05/27/2017 colonoscopy with diffuse severe inflammation with altered vascularity, congestion and erythema at the ileocecal valve. Concerning for Crohn's with ileitis. Received a one-time dose IV Solu-Medrol and will be discharged home on a 4 week taper of prednisone per GI recommendations. Will need to follow up with GI in 3 -4 weeks. 2. Ovarian cyst: ABD CT with probable left benign adnexal cyst measuring 3.6 cm. Will need repeat ultrasound in 6-12 weeks per ACR criteria for a premenopausal female given the size of the lesion Qualifiers: Digestive disease complication type: without complication Qualified Code(s) : K50.00 - Crohn's disease of small intestine without complications (2) Ovarian cyst Priority: Primary Status: Acute Qualifiers: Laterality: left Qualified Code(s): N83.202 - Unspecified ovarian cyst, left side - Discharge Medications Prescriptions: predniSONE [PredniSONE] 10 mg PO DAILY #70 tablet Home Medications: Levonorgestrel [Mirena] 52 mg IY AD 05/25/17 [History] predniSONE [PredniSONE] 10 mg PO DAILY #70 tablet 05/27/17 [Rx] Allergies/Adverse Reactions: 3 Allergy/AdvReac Type Severity Reaction Status Date / Time No Known Allergies Allergy Verified 05/25/17 13:43 Date of admission: 05/25/17 15:33 Primary care physician: Win Mccollum MD Discharging clinician: Judit Wiggins Anticipated date of discharge: 05/27/17 - Patient Status Disposition: Home, Self-Care Condition: Good Functional capacity at discharge: independent ambulation Overall status at discharge: patient is back to baseline - Discharge Instructions Instructions: Crohn Disease (DC), Prednisone (By mouth) Follow Up With: Cj Solis MD [Partnered Physician] - Additional Instructions: Please call your family doctor within 24 hours or the next business day to schedule follow-up appointment This follow-up with Dr. Solis in 3-4 weeks You had an abdominal CT scan that showed a possible left ovarian cyst. It is recommended that you have a follow-up ultrasound in 6-12 weeks. Please follow- up with your primary care to have this scheduled - Diet and Activity Activity: resume usual activities as tolerated Diet: advance to your usual diet Interval History: Seen and examined at bedside. Patient updated on colonoscopy results in the concern for Crohn's. She was tearful and wanted to go home. I discussed with Dr. Solis and kymberly to discharge home on a four-week prednisone taper. Patient will need a follow-up with GI outpatient. Hospital course: Ms. Dailey is a 21 year old female - Time Spent with Patient Total time spent providing and/or coordinating discharge services: - Constitutional Vitals: Temp Pulse Resp BP Pulse Ox 98.2 F 62 16 120/75 98 05/27/17 14:22 05/27/17 14:22 05/27/17 14:22 05/27/17 14:22 05/27/17 14:22 General appearance: Present: A&O X 3, morbidly obese, no acute distress, answers questions appropriately - Head Head exam: Present: atraumatic, normocephalic - Eye Eye exam: Present: PERRL, conjuntiva pink, sclera anicteric Pupils: Present: PERRL - Neck Neck exam general surgery: Present: supple, trachea midline. Absent: lymphadenopathy - Respiratory Respiratory exam: Present: CTAB. Absent: accessory muscle use, rales, rhonchi, wheezes - Cardiovascular Cardiovascular exam: Present: RRR, +S1, +S2. Absent: diastolic murmur, gallop, rubs, systolic murmur - GI/Abdominal GI/Abdominal exam: Present: normal bowel sounds, soft, no peritoneal signs. Absent: distended, tenderness - Extremities Exam Extremities exam: Present: warm, radial pulses palpable and symmetrical. Absent : calf tenderness, cyanotic, pedal edema - Neurological Exam Neurological exam: Present: CN II-XII intact, oriented X3, no focal deficits. Absent: pronater drift, facial droop, speech deficit - Skin Skin exam: Present: dry, intact
[2017-05-27] MEDS ORDERED: *HR* FentaNYL (PF) 100 MCG/2 ML VIAL IVP PRN (17:53)
[2017-05-29 07:55] LABS: Saccharomyces cerevisiae IgA 22.2 Units (0.0-24.9)
== END 2017-05-27 17:14 | disposition home or self-care (01) ==
LOC: EMEROO 08:25 → 3ANU 08:25
PROVIDERS: ADMIT Internal Medicine; ATTEND Internal Medicine
PROC: ENDOCBX (2017-05-27 17:30)

== ENCOUNTER 2017-10-19 19:29 | Inpatient (IN) ==
[2017-10-19 20:38] LABS: Basophils % 0.3 %; Eosinophils # 0.1 K/mcL (0.0-0.6); Eosinophils % 0.5 %; Hematocrit 44.5 % (35.3-44.9); Hemoglobin 15.2 g/dL (11.5-15.4); Immature Granulocytes % 0.4 % (0-4); Lymphocytes # 2.2 K/mcL (0.6-4.6); Lymphocytes % 14.8 %; Mean Corpuscular HGB Conc 34.2 g/dL (31.6-35.5); Mean Corpuscular Hemoglobin 28.5 pg (28.0-33.3); Mean Corpuscular Volume 83.3 fL (83.0-100.0); Monocytes # 0.4 K/mcL (0.0-1.3); Monocytes % 2.7 %; Platelet Count 348 K/mcL (140-400); Red Blood Count 5.34 M/mcL (3.82-4.97); Red Cell Distribution Width 12.8 % (11.5-14.5); Segmented Neutrophils % 81.3 %
[2017-10-19 20:55] LABS: Alanine Aminotransferase 32 Units/L (7-52); Albumin 4.1 g/dL (3.5-5.7); Albumin/Globulin Ratio 1.2 (1.1-2.2); Alkaline Phosphatase 89 Units/L (34-104); Aspartate Amino Transferase 22 Units/L (13-39); BUN/Creatinine Ratio 15 (6-26); Bilirubin,Direct 0.2 mg/dL (0.0-0.2); Bilirubin,Indirect 0.3 mg/dL (0.0-1.2); Bilirubin,Total 0.5 mg/dL (0.3-1.0); Blood Urea Nitrogen 10 mg/dL (6-20); Calcium 9.8 mg/dL (8.6-10.3); Carbon Dioxide 21 mEq/L (23-29); Chloride 106 mEq/L (98-107); Globulin 3.5 g/dL (2.4-3.5); Glucose 188 mg/dL (70-105); Lipase 16 Units/L (11-82); Osmolality,Calculated 288 (280-300); Potassium 3.4 mEq/L (3.5-5.1); Sodium 137 mEq/L (136-145); Total Protein 7.6 g/dL (6.4-8.9); eGFR For African Americans > 60 (> 60); eGFR For Non-African Americans > 60 (> 60)
[2017-10-19 21:32] LABS: Bilirubin,Urine Small (Negative); Blood,Urine Negative (Negative); Clarity,Urine Cloudy (Clear); Color,Urine Dark Yellow (Yellow); Glucose,Urine (UA) Normal (Normal); Ketones,Urine 40 mg/dL (Negative); Leukocyte Esterase,Urine Negative (Negative); Nitrite,Urine Negative (Negative); Protein,Urine 100 mg/dL (Neg-Trace); Specific Gravity,Urine > 1.030 (1.010-1.025); Urobilinogen,Urine Normal (Normal)
[2017-10-19 21:34] LABS: Bacteria,Urine Few per hpf (None-Few); RBC,Urine 0-3 per hpf (0-3); Squamous Epithelial Cell,Urine Many per lpf (None-Few)
[2017-10-19] MEDS ORDERED: *HR* FentaNYL (PF) 100 MCG/2 ML VIAL IVP ONE (21:44)
[2017-10-19] MEDS ORDERED: Ondansetron 4 MG/2 ML VIAL IVP ONE (21:44)
[2017-10-19 21:50] LABS: Hyaline Casts,Urine Few per lpf (None-Few); Mucus,Urine Moderate (Few); Yeast,Urine Few per hpf (None Seen)
--- NOTE | 2017-10-19 21:58 | Emergency Department Note ---
Disposition Clinical Impression: Abdominal pain Qualifiers: Abdominal location: generalized Qualified Code(s): R10.84 - Generalized abdominal pain Disposition: Still a Patient Condition: Good Referrals: Marietta Waller FURNITURE MANAGER [Primary Care Provider] - Forms: ED Satisfaction Letter, Work/School Release Time of Disposition: 22:31 Abdominal Pain HPI - General Chief Complaint: ED Abdominal Pain Stated Complaint: Abd Pain Time Seen by Provider: 10/19/17 21:25 Source: patient Mode of arrival: ambulatory Limitations: no limitations Nursing Notes Reviewed: Yes Vital Signs Reviewed: Yes - History of Present Illness HPI Narrative: 21-year-old female presented to the emergency room for abdominal pain. She states that ongoing for many months. Seemed to get worse today. She does undergoing a GI evaluation for possible Crohn's disease. Her pain is on the midline. She describes vomiting about 5 times today. No diarrhea or constipation. She denies any blood in her vomit. No blood in her stool. She denies any documented fevers but states she has felt hot at times. She has no other complaints at this time. Pain is consistent throughout the day. Pain Scale: 10 - Related Data Home Medications Medication Instructions Recorded Confirmed Levonorgestrel [Mirena] 52 mg IY AD 05/25/17 05/25/17 Previous Rx's Medication Instructions Recorded predniSONE [PredniSONE] 10 mg PO DAILY #70 tablet 05/27/17 Allergies Allergy/AdvReac Type Severity Reaction Status Date / Time No Known Allergies Allergy Verified 05/25/17 13:43 Constitutional: Reports: chills ENT ED: Reports: as per HPI Cardiovascular: Reports: as per HPI Respiratory: Reports: as per HPI Gastrointestinal: Reports: abdominal pain, nausea, vomiting. Denies: diarrhea Genitourinary: Reports: as per HPI Musculoskeletal: Reports: as per HPI Integumentary: Reports: as per HPI Neurological: Reports: as per HPI Psychiatric: Reports: as per HPI Endocrine: Reports: as per HPI Hematological/Lymphatic: Reports: as per HPI Abdominal Pain PMH - Past Medical History Medical history: Reports: non-contributory Female Surgical History: Reports: no surgical history Psychiatric history: Reports: no psych history - Social History Smoking status: Current every day smoker Alcohol use: Reports: occasionally Drug use: Reports: none Physical Exam - General Limitations: no limitations General appearance: alert, in no apparent distress - Head Head exam: atraumatic, normocephalic - Neck Neck exam: Present: normal inspection - Chest Chest inspection: Present: normal inspection - Respiratory Respiratory exam: Present: normal lung sounds bilaterally - Cardiovascular Cardiovascular exam: Present: regular rate, normal rhythm - Abdominal Exam Abdominal exam: Present: soft, tenderness (Patient has tenderness in the midline of the abdomen. No guarding or rebound tenderness. Normal bowel sounds.), normal bowel sounds. Absent: distention, guarding, rebound, rigidity - Extremities Exam Extremities exam: Present: normal inspection - Expanded Lower Extremity Exam Hip/Pelvis exam: Present: normal inspection - Back Exam Back exam: Present: normal inspection - Neurological Exam Neurological exam: Present: alert, oriented X3 - Psychiatric Psychiatric exam: Present: normal affect - Skin Skin exam: Present: warm, dry, intact Course Vital Signs Temperature 0 F L 10/19/17 19:30 Pulse Rate 106 10/19/17 19:30 Respiratory Rate 20 10/19/17 19:30 Blood Pressure 118/90 10/19/17 19:30 O2 Sat by Pulse Oximetry 99 10/19/17 19:30 Temperature 0 F L 10/19/17 19:30 Pulse Rate 71 10/19/17 21:47 Respiratory Rate 18 10/19/17 21:47 Blood Pressure 104/69 10/19/17 21:47 O2 Sat by Pulse Oximetry 95 10/19/17 21:47 Oxygen Delivery Oxygen Delivery Room Air Abdominal Pain - MDM Narrative Medical decision making narrative: Await CT scan with oral and IV contrast results. Disposition pending on that. I did sign the patient out to Dr. Fallon. - Medical Records Medical records reviewed: Yes I reviewed the patient's medical records. - Lab Data Lab results reviewed: Yes I reviewed the patient's lab results. Result diagrams: 10/19/17 20:09 10/19/17 20:09 Lab Results 10/19/17 10/19/17 10/19/17 Range/Units 20:09 20:09 20:09 WBC 14.8 H (4.3-11.1) K/mcL RBC 5.34 H (3.82-4.97) M/mcL Hgb 15.2 (11.5-15.4) g/dL Hct 44.5 (35.3-44.9) % MCV 83.3 (83.0-100.0) fL MCH 28.5 (28.0-33.3) pg MCHC 34.2 (31.6-35.5) g/dL RDW 12.8 (11.5-14.5) % Plt Count 348 (140-400) K/mcL MPV 10.0 (9.4-12.4) fL Immature Gran % 0.4 (0-4) % Seg Neutrophils % 81.3 % Lymphocytes % 14.8 % Monocytes % 2.7 % Eosinophils % 0.5 % Basophils % 0.3 % Neutrophils # 12.0 H (1.6-8.9) K/mcL Lymphocytes # 2.2 (0.6-4.6) K/mcL Monocytes # 0.4 (0.0-1.3) K/mcL Eosinophils # 0.1 (0.0-0.6) K/mcL Basophils # 0.0 (0.0-0.2) K/mcL Sodium 137 (136-145) mEq/L Potassium 3.4 L (3.5-5.1) mEq/L Chloride 106 (98-107) mEq/L Carbon Dioxide 21 L (23-29) mEq/L BUN 10 (6-20) mg/dL Creatinine 0.67 (0.60-1.20) mg/dL Est GFR ( Amer) > 60 (> 60) Est GFR (Non-Af Amer) > 60 (> 60) BUN/Creatinine Ratio 15 (6-26) Glucose 188 H (70-105) mg/dL Calculated Osmolality 288 (280-300) Calcium 9.8 (8.6-10.3) mg/dL Total Bilirubin 0.5 (0.3-1.0) mg/dL Direct Bilirubin 0.2 (0.0-0.2) mg/dL Indirect Bilirubin 0.3 (0.0-1.2) mg/dL AST 22 (13-39) Units/L ALT 32 (7-52) Units/L Alkaline Phosphatase 89 (34-104) Units/L Serum Total Protein 7.6 (6.4-8.9) g/dL Albumin 4.1 (3.5-5.7) g/dL Globulin 3.5 (2.4-3.5) g/dL Albumin/Globulin Ratio 1.2 (1.1-2.2) Lipase 16 (11-82) Units/L Serum , Qual Negative (Negative) Urine Color (Yellow) Urine Clarity (Clear) Urine pH (5.0-8.0) pH Units Ur Specific [place] (1.010-1.025) Urine Protein (Neg-Trace) mg/dL Urine Glucose (UA) (Normal) mg/dL Urine Ketones (Negative) mg/dL Urine Blood (Negative) Urine Nitrite (Negative) Urine Bilirubin (Negative) Urine Urobilinogen (Normal) mg/dL Ur Leukocyte Esterase (Negative) Urine Microscopic RBC (0-3) per hpf Urine Microscopic WBC (0-3) per hpf Ur Squamous Epith Cells (None-Few) per lpf Urine Bacteria (None-Few) per hpf Hyaline Casts (None-Few) per lpf Urine Mucus (Few) Urine Yeast (None Seen) per hpf Ur Culture Indicated? (NO) 10/19/17 Range/Units 21:27 WBC (4.3-11.1) K/mcL RBC (3.82-4.97) M/mcL Hgb (11.5-15.4) g/dL Hct (35.3-44.9) % MCV (83.0-100.0) fL MCH (28.0-33.3) pg MCHC (31.6-35.5) g/dL RDW (11.5-14.5) % Plt Count (140-400) K/mcL MPV (9.4-12.4) fL Immature Gran % (0-4) % Seg Neutrophils % % Lymphocytes % % Monocytes % % Eosinophils % % Basophils % % Neutrophils # (1.6-8.9) K/mcL Lymphocytes # (0.6-4.6) K/mcL Monocytes # (0.0-1.3) K/mcL Eosinophils # (0.0-0.6) K/mcL Basophils # (0.0-0.2) K/mcL Sodium (136-145) mEq/L Potassium (3.5-5.1) mEq/L Chloride (98-107) mEq/L Carbon Dioxide (23-29) mEq/L BUN (6-20) mg/dL Creatinine (0.60-1.20) mg/dL Est GFR ( Amer) (> 60) Est GFR (Non-Af Amer) (> 60) BUN/Creatinine Ratio (6-26) Glucose (70-105) mg/dL Calculated Osmolality (280-300) Calcium (8.6-10.3) mg/dL Total Bilirubin (0.3-1.0) mg/dL Direct Bilirubin (0.0-0.2) mg/dL Indirect Bilirubin (0.0-1.2) mg/dL AST (13-39) Units/L ALT (7-52) Units/L Alkaline Phosphatase (34-104) Units/L Serum Total Protein (6.4-8.9) g/dL Albumin (3.5-5.7) g/dL Globulin (2.4-3.5) g/dL Albumin/Globulin Ratio (1.1-2.2) Lipase (11-82) Units/L Serum , Qual (Negative) Urine Color Dark Yellow (Yellow) Urine Clarity Cloudy A (Clear) Urine pH 6.0 (5.0-8.0) pH Units Ur Specific [place] > 1.030 H (1.010-1.025) Urine Protein 100 H (Neg-Trace) mg/dL Urine Glucose (UA) Normal (Normal) mg/dL Urine Ketones 40 H (Negative) mg/dL Urine Blood Negative (Negative) Urine Nitrite Negative (Negative) Urine Bilirubin Small H (Negative) Urine Urobilinogen Normal (Normal) mg/dL Ur Leukocyte Esterase Negative (Negative) Urine Microscopic RBC 0-3 (0-3) per hpf Urine Microscopic WBC 5-15 H (0-3) per hpf Ur Squamous Epith Cells Many H (None-Few) per lpf Urine Bacteria Few (None-Few) per hpf Hyaline Casts Few (None-Few) per lpf Urine Mucus Moderate H (Few) Urine Yeast Few H (None Seen) per hpf Ur Culture Indicated? NO (NO) - Radiology Data Radiology results reviewed: Yes I reviewed the patient's radiology results.
[2017-10-19] MEDS ORDERED: *HR* Promethazine 25 MG/ML VIAL IM ONE (23:04)
[2017-10-20] MEDS ORDERED: methylPREDNISolone 125 MG/2 ML VIAL IVP ONE (00:47)
[2017-10-20] MEDS ORDERED: *HR* LORazepam 2 MG/ML VIAL IVP ONE (00:47)
[2017-10-20] MEDS ORDERED: *HR* FentaNYL (PF) 100 MCG/2 ML VIAL IVP ONE (00:47)
[2017-10-20] MEDS ORDERED: Naloxone 0.4 MG/ML INJ IVP PRN (01:51)
[2017-10-20] MEDS ORDERED: *HR* FentaNYL (PF) 100 MCG/2 ML VIAL IVP PRN (02:01)
[2017-10-20] MEDS: D5% in 0.45% NACL 1,000 ML IVC SCH ×2 (02:33→11:07)
[2017-10-20] MEDS: *HR* FentaNYL (PF) 100 MCG/2 ML VIAL IVP PRN ×2 (02:33→06:34)
--- NOTE | 2017-10-20 03:15 | Internal Med History&Physical ---
Date of Encounter: 10/20/17 Time of Encounter: 02:00 Assessment and Plan (1) SBO (small bowel obstruction) Current visit: Yes Status: Acute Admit the pt into Med Surg Reviewed CT of Abd - showed circumferential mural thickening of terminal ileum, dilated small bowel proximal to ileum consistent with SBO NPO for now IV hydration IV analgesics IV steroids PPI Will consult GI in AM (2) Crohn's disease involving terminal ileum Current visit: Yes Status: Acute IV analgesics IV steroids Will consult GI in AM (3) Abdominal pain Current visit: Yes Status: Acute see above Qualifiers: Abdominal location: periumbilical Qualified Code(s): R10.33 - Periumbilical pain Internal Medicine - H&P: HPI Chief complaint: Abdominal pain, N/V Admitted From: Emergency Dept Plans for Post Hospital Care: Home History of present illness: Ms. Dailey is a 21 year old female with known PMH of recently diagnosed Crohn's disease in 05/2017 now she presented to ER c/o she has been having on and off abdominal pain since then which seems to be worsening lately. Since y/d she has been having nausea , vomiting and 8/10 severe abi umbelical abdominal pain. Pt also had a couple of episodes running diarrhea. Denied any melena / BRBPR / Hematemesis. Past Med Surg Social Fam HX - Past Medical History Medical history: non-contributory Psychiatric history: no psych history - Past Surgical History Surgical History: non-contributory - Social History Smoking Status: Current every day smoker Packs per day: 1 Smokeless Tobacco Status: No Alcohol use: occasionally Drug use: none - Family History Father Living Status: Still Living Hx Family Cancer: Yes (Skin) Hx Family Endocrine Disorder: Yes (DM) Internal Medicine - H&P: Meds Levonorgestrel [Mirena] 52 mg IY AD 05/25/17 [History] predniSONE [PredniSONE] 10 mg PO DAILY #70 tablet 05/27/17 [Rx] 3 Allergy/AdvReac Type Severity Reaction Status Date / Time No Known Allergies Allergy Verified 05/25/17 13:43 All Systems PM: A 10-system review of systems was performed and is negative for pertinent findings except as documented above in the HPI. Review of systems: All the systems are reviewed everything is benign except the systems and symptoms I mentioned in the history of present illness - Constitutional Vitals: Temp Pulse Resp BP Pulse Ox 97.8 F 78 14 108/71 99 10/20/17 02:04 10/20/17 02:04 10/20/17 02:04 10/20/17 02:04 10/20/17 02:43 General appearance: Present: mild distress, A&O X 3, answers questions appropriately - Head Head exam: Present: atraumatic, normal inspection - Neck Neck exam general surgery: Present: supple - Respiratory Respiratory exam: Present: decreased breath sounds. Absent: rales, respiratory distress, rhonchi, wheezes - Cardiovascular Cardiovascular exam: Present: +S1, +S2. Absent: tachycardia - GI/Abdominal GI/Abdominal exam: Present: normal bowel sounds, soft, tenderness (moderate tendeness at abi umbelical region). Absent: rebound, rigid - Extremities Exam Extremities exam: Absent: calf tenderness, pedal edema, tenderness - Back Exam Back exam: Absent: CVA tenderness (L), CVA tenderness (R) - Neurological Exam Neurological exam: Present: alert, oriented X3 - Psychiatric Psychiatric exam: Present: normal affect, normal mood - Skin Skin exam: Absent: rash Internal Med - H&P Results - Labs CBC & Chem 7: 10/19/17 20:09 10/19/17 20:09
[2017-10-20] MEDS ORDERED: *HR* Promethazine 25 MG/ML VIAL IVP PRN (03:20)
--- NOTE | 2017-10-20 04:28 | Emergency Department Note ---
START Narrative - START START: Findings consistent with small bowel obstruction likely related to underlying Crohn's disease. The patient does follow with gastroenterology. We did call the paging service and GI is not available for consultation this evening. I did consult Dr. martinez in general surgery to facilitate admission to the hospital for small bowel obstruction. Dr. martinez was not agreeable to see this patient in consultation as he felt this was a predominantly gastroenterology related issue and the patient would need Remicade and steroids. Patient will be admitted to the hospital for further evaluation. The hospitalist graciously accepted this patient for admission after initiation of intravenous steroids.
[2017-10-20] MEDS: Ondansetron 4 MG/2 ML VIAL IVP PRN ×2 (05:28→23:36)
[2017-10-20] MEDS: MethylPREDNISolone 40 MG/ML VIAL IVP SCH ×5 (05:28→23:37)
[2017-10-20 05:52] LABS: Basophils % 0.1 %; Eosinophils % 0.1 %; Hematocrit 43.7 % (35.3-44.9); Hemoglobin 14.6 g/dL (11.5-15.4); Immature Granulocytes % 0.4 % (0-4); Lymphocytes # 0.9 K/mcL (0.6-4.6); Lymphocytes % 6.3 %; Mean Corpuscular HGB Conc 33.4 g/dL (31.6-35.5); Mean Corpuscular Hemoglobin 28.5 pg (28.0-33.3); Mean Corpuscular Volume 85.2 fL (83.0-100.0); Mean Platelet Volume 10.1 fL (9.4-12.4); Monocytes # 0.1 K/mcL (0.0-1.3); Monocytes % 0.4 %; Neutrophils # 13.9 K/mcL (1.6-8.9); Platelet Count 346 K/mcL (140-400); Red Blood Count 5.13 M/mcL (3.82-4.97); Red Cell Distribution Width 12.7 % (11.5-14.5); Segmented Neutrophils % 92.7 %
[2017-10-20 06:13] LABS: Alanine Aminotransferase 30 Units/L (7-52); Albumin 3.9 g/dL (3.5-5.7); Albumin/Globulin Ratio 1.2 (1.1-2.2); Alkaline Phosphatase 82 Units/L (34-104); Aspartate Amino Transferase 22 Units/L (13-39); BUN/Creatinine Ratio 11 (6-26); Bilirubin,Total 0.5 mg/dL (0.3-1.0); Blood Urea Nitrogen 7 mg/dL (6-20); Calcium 9.2 mg/dL (8.6-10.3); Carbon Dioxide 21 mEq/L (23-29); Chloride 106 mEq/L (98-107); Globulin 3.3 g/dL (2.4-3.5); Glucose 172 mg/dL (70-105); Magnesium 1.9 mg/dL (1.6-2.6); Osmolality,Calculated 280 (280-300); Potassium 3.9 mEq/L (3.5-5.1); Sodium 134 mEq/L (136-145); Total Protein 7.2 g/dL (6.4-8.9); eGFR For African Americans > 60 (> 60); eGFR For Non-African Americans > 60 (> 60)
[2017-10-20] MEDS: Nicotine 21 MG PATCH.TD24 TD SCH (07:43)
--- NOTE | 2017-10-20 10:52 | Gastroenterology Consult Note ---
<LorenzoRaj Nick - Last Filed: 10/20/17 10:43> Date of Encounter: 10/20/17 Time of Encounter: 10:25 - Assessment and plan (1) Colitis Status: Acute Assessment and plan: Possible Crohn's disease. Last colonoscopy with severe inflammation at ileocecal valve. ASCA and ANCA were normal 05/25/2017. Capsule endoscopy scheduled for 11/02/2017. No indication for colonoscopy at this time. Decrease Solu-Medrol to 20mg q6hr. Check TPMT and CT enterography. - Time Spent With Patient Total time spent is greater than 50% in coordination of care (as documented) at patient's floor/unit and/or counseling patient: GI History of Present Illness - Data of Consult Patient: known to practice within the last 3 years Consult date: 10/20/17 Requesting Physician: Himanshu Ortiz MD - Consult Narrative Reason for consult: Acute Crohn's flare History of present illness: Ms. Dailey is a 21 year old female with PMHx of possible Crohn's disease presented to the ED with c/o abdominal pain that has been ongoing for several months. CT A/P with circumferential mural thickening involving the terminal ileum, with surrounding fat stranding which is leading to proximal obstruction of the small bowel, with multiple fluid-filled dilated loops, and with multiple air-fluid levels. She reports nausea and vomiting, but denies hematemesis. She reports a couple episodes of diarrhea, but denies any melena or hematochezia. She had a colonoscopy 05/2017 with severe inflammation at ileocecal valve and was scheduled to have capsule endoscopy 08/14/2017 but it was cancelled by the patient on 08/13/2017 due to insurance issues. Capsule endoscopy has been rescheduled for 11/02. She was initially treated with steroids and then changed to Entocort. ASCA and ANCA were normal. TPMT testing was ordered but not completed. Procedures: Colonoscopy 05/27/2017 Dr. Solis: Diffuse severe inflammation at ileocecal valve secondary to ???Crohn's disease with ileitis. NSAIDs: None Anticoagulation: None Past Med Surg Social Fam HX - Past Medical History Medical history: non-contributory Psychiatric history: no psych history - Past Surgical History Surgical History: non-contributory - Social History Smoking Status: Current every day smoker Packs per day: 1 Smokeless Tobacco Status: No Alcohol use: occasionally Drug use: none - Family History Father Living Status: Still Living Hx Family Cancer: Yes (Skin) Hx Family Endocrine Disorder: Yes (DM) - Gastrointestinal Gastrointestinal: Present: as per HPI - Constitutional Constitutional: as per HPI - EENT Eyes: as per HPI Ears: Present: as per HPI Nose, mouth and throat: Present: as per HPI - Cardiovascular Cardiovascular ROS: Present: as per HPI - Respiratory Respiratory IM: Present: as per HPI - Genitourinary Genitourinary: Absent: change in color, Urinary frequency - Neurological ROS Neurological GI: Present: as per HPI - Hematologic/Lymphatic Hematologic/Lymphatic pediatric: Present: as per HPI - Musculoskeletal Musculoskeletal ROS GI: Present: as per HPI - Integumentary Integumentary GI: Present: as per HPI - Psychiatric ROS Psychiatric GI: Present: as per HPI - Endocrine Endocrine IM: Present: as per HPI - Constitutional Vitals: Temp Pulse Resp BP Pulse Ox 98.2 F 91 18 117/76 97 10/20/17 10:17 10/20/17 10:17 10/20/17 10:17 10/20/17 10:17 10/20/17 10:17 General appearance: Present: cooperative, A&O X 3, no acute distress, answers questions appropriately - Head Head exam: Present: atraumatic, normocephalic - Eye Eye exam: Present: normal appearance, sclera anicteric - ENT ENT exam: Present: mucous membranes moist - Neck Neck exam general surgery: Present: normal inspection, trachea midline - Respiratory Respiratory exam: Present: CTAB. Absent: rales, rhonchi - Cardiovascular Cardiovascular exam: Present: RRR, +S1, +S2 - GI/Abdominal GI/Abdominal exam: Present: soft, tenderness (mild periumbilical tenderness), no peritoneal signs. Absent: distended, firm, guarding - Rectal Rectal exam: Present: deferred - Extremities Exam Extremities exam: Present: warm - Neurological Exam Neurological exam: Present: no focal deficits - Psychiatric Psychiatric exam: Present: normal affect, normal mood - Skin Skin exam: Present: dry, intact, normal color, warm Results - Labs CBC & Chem 7: 10/20/17 05:20 10/20/17 05:20 Labs: Last Result Calcium 9.2 mg/dL (8.6-10.3) 10/20/17 05:20 Entire Visit Hgb 14.6 g/dL (11.5-15.4) 10/20/17 05:20 Hct 43.7 % (35.3-44.9) 10/20/17 05:20 Total Bilirubin 0.5 mg/dL (0.3-1.0) 10/20/17 05:20 AST 22 Units/L (13-39) 10/20/17 05:20 ALT 30 Units/L (7-52) 10/20/17 05:20 Lipase 16 Units/L (11-82) 10/19/17 20:09 Consult Discharge Plan - Plan Instructions: Prednisone (By mouth) Referrals: Ariel Tyler MD [Partnered Physician] - 10/30/17 1:30 pm Prescriptions: predniSONE [PredniSONE] 40 mg PO DAILY #20 tablet <Laureano Ridley - Last Filed: 11/09/17 07:13> Date of Encounter: 10/20/17 - Time Spent With Patient Total time spent is greater than 50% in coordination of care (as documented) at patient's floor/unit and/or counseling patient: GI History of Present Illness - Data of Consult Requesting Physician: Himanshu Ortiz MD - Consult Narrative History of present illness: Ms. Dailey is a 22 year old female - Constitutional Vitals: Temp Pulse Resp BP Pulse Ox 97.5 F L 68 15 138/94 96 10/23/17 10:41 10/23/17 10:41 10/23/17 10:41 10/23/17 10:41 10/23/17 10:41 Results - Labs CBC & Chem 7: 10/22/17 05:28 10/22/17 05:28 Labs: Last Result Calcium 8.8 mg/dL (8.6-10.3) 10/22/17 05:28 Entire Visit Hgb 13.1 g/dL (11.5-15.4) 10/22/17 05:28 Hct 40.3 % (35.3-44.9) 10/22/17 05:28 Total Bilirubin 0.5 mg/dL (0.3-1.0) 10/20/17 05:20 AST 22 Units/L (13-39) 10/20/17 05:20 ALT 30 Units/L (7-52) 10/20/17 05:20 Lipase 16 Units/L (11-82) 10/19/17 20:09 - Attending Attestation History is noted and apparently has a history of Crohn's disease and had appears to have narrowing of the terminal ileum which might be a problem with the capsule endoscopy as it as a cancers is possible could get stuck. Agree with present plan to make further recommendations is to go along I have personally performed a face to face evaluation on this patient. I have reviewed and agree with the care plan. History and Exam by me shows:
--- NOTE | 2017-10-20 14:51 | General Surgery Consult Note ---
Date of Encounter: 10/20/17 Time of Encounter: 13:50 History of Present Illness Consult date: 10/20/17 Reason for consult: other (terminal ileitis with SBO) Requesting physician: Manolo Fallon History of present illness: 21 yo morbidly obese patient of Dr. Solis admitted after presenting to the [facility] ED for further evaluation and treatment of abdominal pain with nausea and vomiting. CT of the abdomen/pelvis obtained on presentation to the emergency department demonstrated circumferential mural thickening of the terminal ileum with surrounding fat stranding. Proximal obstruction of the small bowel with multiple air and fluid filled loops of bowel are described. This CT was compared to a CT completed in May 2017 which also showed circumferential mural thickening of the terminal ileum and proximal dilated loops of small bowel. The current CT shows progression/increased dilation of the small bowel. Several enlarged lymph nodes in the mesentery are noted and believed to be reactive. Surgical consultation was placed based on the CT findings of progressive distention of the small bowel with concern of a SBO. I did not refused to see the patient, however, my surgical evaluation was deferred until the patient could be evaluated by gastroenterology. Past medical history: Otherwise unremarkable - no history of hypertension, diabetes, pulmonary, renal, or cardiovascular disease. Patient relates a long-standing history of abdominal pain with recurrent nausea vomiting dating back at least 6 months. The patient was hospitalized, May 2017, for similar symptoms. Colonoscopy demonstrated acute inflammation of the terminal ileum. Treatment relieved the patient's abdominal complaints. The patient indicates a capsule endoscopy had been planned but is yet to be completed. The patient denies any current therapy/medications/suppression of the ileal disease. Surgical history: Tonsillectomy; Colonoscopy 05/2017; placement IUD Allergies: No known drug allergies Medications: None Social history: Patient is G1, P1; status post normal vaginal delivery approximate 4 years ago; patient is a smoker but is vague as to amount and duration; the patient also consumes an occasional alcoholic beverage; she denies any illicit drug use Physical examination: Morbidly obese, age-appropriate, woman lying comfortably in her hospital bed she is in no acute distress. The patient is 1.65 m tall, 131.7 kg, BMI 48.3. The patient indicates that her acute abdominal pain, nausea, and vomiting has subsided since admission. The patient is afebrile, most recently 98.2, pulse 9194, respirations 12-18, blood pressure 117/76 to 127/73 Skin is warm with multiple cutaneous tattoos; no obvious jaundice Lungs: Clear to auscultation; no obvious abdominal pain with deep inspiration Cardiac: Regular rate, no appreciable murmurs Abdomen: Obese, soft, with right lower quadrant tenderness to moderate palpation. No obvious rebound. Bowel sounds were not audible Extremities: No obvious clubbing, cyanosis, or edema. CT abdomen/pelvis - reviewed with [facility] with comparison to prior CT Laboratories: White count on presentation 14.8 with hemoglobin 15.2, hematocrit 44.5. 12% neutrophils Repeat leukocytosis this morning 15.0 - patient given steroids in the ED, hemoglobin 14.6, hematocrit 43.7. Neutrophils have increased to 13.9% Electrolytes show sodium of 137 following to 134 with hydration; potassium corrected from 3.4-3.9. BUN and creatinine remaining stable, currently 7 and 0.64 respectively LFTs within normal limits. Impression: Acute inflammation of the distal ileum with circumferential mural thickening and surrounding fat stranding. Likely Crohn's disease. Dilated air and fluid-filled proximal small bowel which has increased since CT 05/2017. Plan: Will defer medical management to Gastroenterology and Hospitalist Service If patient's status worsens or medical management fails to provide relief - surgical intervention will then be considered. This was discussed at length with the patient. Also discussed with Dr Angel Ricketts will follow along with you. Past Med Surg Social Fam HX - Past Medical History Medical history: non-contributory Psychiatric history: no psych history - Past Surgical History Surgical History: non-contributory - Social History Smoking Status: Current every day smoker Packs per day: 1 Smokeless Tobacco Status: No Alcohol use: occasionally Drug use: none - Family History Father Living Status: Still Living Hx Family Cancer: Yes (Skin) Hx Family Endocrine Disorder: Yes (DM) Medications and Allergies Budesonide [Entocort EC] 3 mg PO TID 10/20/17 [History] Escitalopram [Lexapro] 10 mg PO DAILY 10/20/17 [History] Levonorgestrel [Mirena] 52 mg IY AD 10/20/17 [History] 3 Allergy/AdvReac Type Severity Reaction Status Date / Time No Known Allergies Allergy Verified 05/25/17 13:43 Review of Systems All systems PM: The remainder of the systems were reviewed and are negative General Surgery Exam Initial Vital Signs Temp Pulse Resp BP Pulse Ox 0 F L 106 20 118/90 99 10/19/17 19:30 10/19/17 19:30 10/19/17 19:30 10/19/17 19:30 10/19/17 19:30 Exam Initial Vital Signs Temp Pulse Resp BP Pulse Ox 0 F L 106 20 118/90 99 10/19/17 19:30 10/19/17 19:30 10/19/17 19:30 10/19/17 19:30 10/19/17 19:30 Results - Labs 10/20/17 05:20 10/20/17 05:20 Abnormal lab results WBC 15.0 K/mcL (4.3-11.1) H 10/20/17 05:20 RBC 5.13 M/mcL (3.82-4.97) H 10/20/17 05:20 Neutrophils # 13.9 K/mcL (1.6-8.9) H 10/20/17 05:20 Sodium 134 mEq/L (136-145) L 10/20/17 05:20 Carbon Dioxide 21 mEq/L (23-29) L 10/20/17 05:20 Glucose 172 mg/dL (70-105) H 10/20/17 05:20 POC Glucose 145 mg/dL (58-89) H 10/20/17 12:43 Urine Clarity Cloudy (Clear) A 10/19/17 21:27 Ur Specific [place] > 1.030 (1.010-1.025) H 10/19/17 21:27 Urine Protein 100 mg/dL (Neg-Trace) H 10/19/17 21:27 Urine Ketones 40 mg/dL (Negative) H 10/19/17 21:27 Urine Bilirubin Small (Negative) H 10/19/17 21:27 Urine Microscopic WBC 5-15 per hpf (0-3) H 10/19/17 21:27 Ur Squamous Epith Cells Many per lpf (None-Few) H 10/19/17 21:27 Urine Mucus Moderate (Few) H 10/19/17 21:27 Urine Yeast Few per hpf (None Seen) H 10/19/17 21:27 Diabetes panel 10/20/17 Range/Units 05:20 Sodium 134 L (136-145) mEq/L Potassium 3.9 (3.5-5.1) mEq/L Chloride 106 (98-107) mEq/L Carbon Dioxide 21 L (23-29) mEq/L BUN 7 (6-20) mg/dL Creatinine 0.64 (0.60-1.20) mg/dL Glucose 172 H (70-105) mg/dL Calcium 9.2 (8.6-10.3) mg/dL AST 22 (13-39) Units/L ALT 30 (7-52) Units/L Alkaline Phosphatase 82 (34-104) Units/L Albumin 3.9 (3.5-5.7) g/dL Calcium panel 10/20/17 Range/Units 05:20 Calcium 9.2 (8.6-10.3) mg/dL Albumin 3.9 (3.5-5.7) g/dL Pituitary panel 10/20/17 Range/Units 05:20 Sodium 134 L (136-145) mEq/L Potassium 3.9 (3.5-5.1) mEq/L Chloride 106 (98-107) mEq/L Carbon Dioxide 21 L (23-29) mEq/L BUN 7 (6-20) mg/dL Creatinine 0.64 (0.60-1.20) mg/dL Glucose 172 H (70-105) mg/dL Calcium 9.2 (8.6-10.3) mg/dL Adrenal panel 10/20/17 Range/Units 05:20 Sodium 134 L (136-145) mEq/L Potassium 3.9 (3.5-5.1) mEq/L Chloride 106 (98-107) mEq/L Carbon Dioxide 21 L (23-29) mEq/L BUN 7 (6-20) mg/dL Creatinine 0.64 (0.60-1.20) mg/dL Glucose 172 H (70-105) mg/dL Calcium 9.2 (8.6-10.3) mg/dL Total Bilirubin 0.5 (0.3-1.0) mg/dL AST 22 (13-39) Units/L ALT 30 (7-52) Units/L Alkaline Phosphatase 82 (34-104) Units/L Albumin 3.9 (3.5-5.7) g/dL All other labs normal. Consult Discharge Plan - Plan Referrals: Marietta Waller, [place] [Primary Care Provider] -
[2017-10-20] MEDS: *HR* OxyCODONE/APAP 5/325 TABLET PO PRN ×2 (15:43→23:36)
--- NOTE | 2017-10-20 16:27 | Event Note ---
Date of Encounter: 10/20/17 Time of Encounter: 16:24 21 F with Morbid Obesity, Nicotine dependence and Crohn's disease who is admitted for SBO and Crohn's flare She denies any abdominal pain. She is yet to have BM, and she is no longer vomiting She however does not jave any bowel sounds on exam Keep NPO Continue care by GI Of note, patient's CT done 10/20 was with contrast, hence the new CT enterography ordered by GI has been cancelled for now XR acute abdomen series ordered Continue current management otherwise
[2017-10-21] MEDS: Acetaminophen 325 MG TABLET PO PRN ×2 (02:58→14:14)
[2017-10-21] MEDS: MethylPREDNISolone 40 MG/ML VIAL IVP SCH ×4 (05:04→23:02)
[2017-10-21 06:31] LABS: Basophils % 0.1 %; Hematocrit 40.2 % (35.3-44.9); Hemoglobin 13.4 g/dL (11.5-15.4); Immature Granulocytes % 0.6 % (0-4); Lymphocytes # 1.2 K/mcL (0.6-4.6); Lymphocytes % 7.7 %; Mean Corpuscular HGB Conc 33.3 g/dL (31.6-35.5); Mean Corpuscular Hemoglobin 28.4 pg (28.0-33.3); Mean Corpuscular Volume 85.2 fL (83.0-100.0); Mean Platelet Volume 10.2 fL (9.4-12.4); Monocytes # 0.3 K/mcL (0.0-1.3); Monocytes % 1.9 %; Neutrophils # 14.4 K/mcL (1.6-8.9); Platelet Count 311 K/mcL (140-400); Red Blood Count 4.72 M/mcL (3.82-4.97); Red Cell Distribution Width 12.7 % (11.5-14.5); Segmented Neutrophils % 89.7 %
[2017-10-21 06:59] LABS: BUN/Creatinine Ratio 13 (6-26); Blood Urea Nitrogen 7 mg/dL (6-20); Calcium 9.2 mg/dL (8.6-10.3); Carbon Dioxide 25 mEq/L (23-29); Chloride 110 mEq/L (98-107); Glucose 133 mg/dL (70-105); Osmolality,Calculated 290 (280-300); Potassium 3.8 mEq/L (3.5-5.1); Sodium 140 mEq/L (136-145); eGFR For African Americans > 60 (> 60); eGFR For Non-African Americans > 60 (> 60)
[2017-10-21] MEDS: Nicotine 21 MG PATCH.TD24 TD SCH ×2 (07:53→20:32)
--- NOTE | 2017-10-21 10:58 | Internal Med Progress Note ---
Date of Encounter: 10/21/17 Time of Encounter: 10:55 - Assessment and plan (1) Abdominal pain Current Visit: Yes Status: Acute Assessment and plan: See below Qualifiers: Abdominal location: periumbilical Qualified Code(s): R10.33 - Periumbilical pain (2) SBO (small bowel obstruction) Current Visit: Yes Status: Acute Assessment and plan: No evidence of mechanical obstruction on acute abdominal series x-ray. Patient still did not have inflammatory for bowel movement and bowel sounds are diminished on exam. Keep nothing by mouth, Fluid hydration (3) Crohn's disease involving terminal ileum Current Visit: Yes Status: Chronic Assessment and plan: Acute flare and paralytic ileus. Continue Solu-Medrol. The patient may require another maintenance medication this time since she was not on any throughout admission. Assistant Front Desk Manager following. (4) Morbid obesity Current Visit: Yes Status: Chronic Assessment and plan: lifestyle modification (5) Leukocytosis Current Visit: Yes Status: Acute Assessment and plan: Possibly due to steroids, continue to monitor. No evidence of infection. Qualifiers: Leukocytosis type: unspecified Qualified Code(s): D72.829 - Elevated white blood cell count, unspecified - Time Spent With Patient Total time spent is greater than 50% in coordination of care (as documented) at patient's floor/unit and/or counseling patient: - Subjective Interval history: Seen and evaluated at the bedside with ibuprofen. She reports no flatus or bowel movement. She denies abdominal pain. Nausea and vomiting has resolved. Acute abdomen series done yesterday ruled out a mechanical obstruction but shows evidence of paralytic ileus. Assistant Front Desk Manager is following. - Constitutional Vitals: Temp Pulse Resp BP Pulse Ox 97.7 F 77 15 133/76 96 10/21/17 10:15 10/21/17 10:15 10/21/17 10:15 10/21/17 10:15 10/21/17 10:15 General appearance: Present: A&O X 3, morbidly obese, pleasant, no acute distress, answers questions appropriately - Head Head exam: Present: atraumatic, normocephalic - Eye Eye exam: Present: PERRL, conjuntiva pink, sclera anicteric Pupils: Present: PERRL - Neck Neck exam general surgery: Present: supple, trachea midline. Absent: lymphadenopathy - Respiratory Respiratory exam: Present: CTAB. Absent: accessory muscle use, rales, rhonchi, wheezes - Cardiovascular Cardiovascular exam: Present: RRR, +S1, +S2. Absent: diastolic murmur, gallop, rubs, systolic murmur - GI/Abdominal GI/Abdominal exam: Present: soft, no peritoneal signs. Absent: distended, tenderness Additional comments: Diminshed bowel sounds Abdomen is nontender, not distended. No palpably enlarged organs. - Extremities Exam Extremities exam: Present: warm, radial pulses palpable and symmetrical. Absent : calf tenderness, cyanotic, pedal edema - Neurological Exam Neurological exam: Present: alert, CN II-XII intact, oriented X3, no focal deficits. Absent: pronater drift, facial droop, speech deficit - Skin Skin exam: Present: dry, intact Internal Medicine: Result - Labs CBC & Chem 7: 10/21/17 05:56 10/21/17 05:56 Labs: Short CBC 10/21/17 Range/Units 05:56 WBC 16.0 H (4.3-11.1) K/mcL Hgb 13.4 (11.5-15.4) g/dL Hct 40.2 (35.3-44.9) % Plt Count 311 (140-400) K/mcL Neutrophils # 14.4 H (1.6-8.9) K/mcL BMP 10/21/17 05:56 Sodium 140 Potassium 3.8 Chloride 110 H Carbon Dioxide 25 BUN 7 Creatinine 0.55 L Glucose 133 H Calcium 9.2 - Impressions Impressions Chest/Abdomen X-ray 10/20/17 14:15 IMPRESSION: 1. No evidence of complete small bowel obstruction or free intraperitoneal air. 2. Prominent loop of gas-filled small bowel in the left mid abdomen, possible focal ileus. 3. No acute radiographic abnormality in the chest. D/ / Natan Lai MD / Natan Lai MD Interpreting Provider: Natan Lai MD Consult Discharge Plan - Plan Referrals: Marietta Waller, H[employer]ITIONER [Primary Care Provider] -
[2017-10-21] MEDS: 0.9 % Sodium Chloride 1,000 ML IVC SCH ×2 (11:42→23:05)
[2017-10-21] MEDS: *HR* OxyCODONE/APAP 5/325 TABLET PO PRN ×3 (11:42→23:01)
[2017-10-21] MEDS: Ondansetron 4 MG/2 ML VIAL IVP PRN (14:15)
--- NOTE | 2017-10-21 14:22 | General Surgery Progress Note ---
Date of Encounter: 10/21/17 Time of Encounter: 14:00 Subjective Patient reports: feels better Narrative: General Surgery - Patient feeling better; indicates right sided abdominal pain has diminished. No further nausea or vomiting. Patient continues afebrile, most recently 98.3, pulse 66, respirations 15, blood pressure 100/61. Lungs: Clear; no abdominal pain with deep inspiration Abdomen: Morbidly obese, soft, tenderness only elicited to deep deep palpation in the right lower quadrant. No discernible intra-abdominal masses but exam limited by patient body habitus; no rebound. Bowel sounds present but hypoactive Patient reports passing flatus but no BM Laboratories: Increasing leukocytosis to 16.0, however, this may be due to steroids. Neutrophiles of increased to 14.4% Hemoglobin 13.4, hematocrit 40.2. Electrodes, BUN, creatinine thin normal limits except chloride which has increased to 110. Acute abdominal series following completion of the CT shows oral contrast throughout the colon extending to the rectum. Impression: Acute terminal ileitis presumably due to Crohn's. Abdominal pain diminished; oral contrast for CT evident within the colon - obviously passing through the inflamed distal ileum. Continued response to medical management may preclude surgical intervention Patient anxious to go home but clearly not ready from a medical standpoint. Recommendations: Allow clear liquids. Patient has been instructed to resume nothing by mouth if she experiences increasing abdominal pain, bloating, nausea or vomiting. Continue medical management per Gastroenterology and/or Hospitalist Service Objective Vital Signs - Last 8 Hours Temp Pulse Resp BP Pulse Ox 10/21/17 14:03 98.3 F 66 15 100/61 96 10/21/17 10:15 97.7 F 77 15 133/76 96 10/21/17 07:23 98.1 F 69 15 117/74 97 Intake and Output 10/20/17 10/21/17 10/21/17 23:59 07:59 15:59 Intake Total 0 / 0 0 / 0 0 / 0 Output Total 400 / 400 0 / 0 0 / 0 Balance -400 / -400 0 / 0 0 / 0 Intake: Oral 0 / 0 0 / 0 0 / 0 Output: Urine 400 / 400 0 / 0 0 / 0 Other: Meal NPO Weight 132 kg Blood Glucose* 147 124 123 Patient Weight 10/21/17 23:59 Weight 132 kg - Labs 10/21/17 05:56 10/21/17 05:56 Diabetes panel 10/21/17 Range/Units 05:56 Sodium 140 (136-145) mEq/L Potassium 3.8 (3.5-5.1) mEq/L Chloride 110 H (98-107) mEq/L Carbon Dioxide 25 (23-29) mEq/L BUN 7 (6-20) mg/dL Creatinine 0.55 L (0.60-1.20) mg/dL Glucose 133 H (70-105) mg/dL Calcium 9.2 (8.6-10.3) mg/dL Calcium panel 10/21/17 Range/Units 05:56 Calcium 9.2 (8.6-10.3) mg/dL Pituitary panel 10/21/17 Range/Units 05:56 Sodium 140 (136-145) mEq/L Potassium 3.8 (3.5-5.1) mEq/L Chloride 110 H (98-107) mEq/L Carbon Dioxide 25 (23-29) mEq/L BUN 7 (6-20) mg/dL Creatinine 0.55 L (0.60-1.20) mg/dL Glucose 133 H (70-105) mg/dL Calcium 9.2 (8.6-10.3) mg/dL Adrenal panel 10/21/17 Range/Units 05:56 Sodium 140 (136-145) mEq/L Potassium 3.8 (3.5-5.1) mEq/L Chloride 110 H (98-107) mEq/L Carbon Dioxide 25 (23-29) mEq/L BUN 7 (6-20) mg/dL Creatinine 0.55 L (0.60-1.20) mg/dL Glucose 133 H (70-105) mg/dL Calcium 9.2 (8.6-10.3) mg/dL Consult Discharge Plan - Plan Referrals: Marietta Waller, SENIOR MICROSTRATEGY DEVELOPER [Primary Care Provider] -
[2017-10-21] MEDS: Melatonin 3 MG TABLET PO SCH (23:01)
[2017-10-22] MEDS: MethylPREDNISolone 40 MG/ML VIAL IVP SCH (05:03)
[2017-10-22 06:14] LABS: Basophils % 0.1 %; Hematocrit 40.3 % (35.3-44.9); Hemoglobin 13.1 g/dL (11.5-15.4); Immature Granulocytes % 0.6 % (0-4); Lymphocytes % 16.2 %; Mean Corpuscular HGB Conc 32.5 g/dL (31.6-35.5); Mean Corpuscular Hemoglobin 28.2 pg (28.0-33.3); Mean Corpuscular Volume 86.7 fL (83.0-100.0); Mean Platelet Volume 10.1 fL (9.4-12.4); Monocytes # 0.4 K/mcL (0.0-1.3); Monocytes % 3.1 %; Neutrophils # 9.7 K/mcL (1.6-8.9); Platelet Count 306 K/mcL (140-400); Red Blood Count 4.65 M/mcL (3.82-4.97); Red Cell Distribution Width 12.7 % (11.5-14.5)
[2017-10-22 06:23] LABS: BUN/Creatinine Ratio 17 (6-26); Blood Urea Nitrogen 9 mg/dL (6-20); Calcium 8.8 mg/dL (8.6-10.3); Carbon Dioxide 25 mEq/L (23-29); Chloride 111 mEq/L (98-107); Glucose 109 mg/dL (70-105); Osmolality,Calculated 289 (280-300); Potassium 3.8 mEq/L (3.5-5.1); Sodium 140 mEq/L (136-145); eGFR For African Americans > 60 (> 60); eGFR For Non-African Americans > 60 (> 60)
--- NOTE | 2017-10-22 12:21 | Internal Med Progress Note ---
Date of Encounter: 10/22/17 Time of Encounter: 12:20 - Assessment and plan (1) Abdominal pain Current Visit: Yes Status: Acute Assessment and plan: See below Qualifiers: Abdominal location: periumbilical Qualified Code(s): R10.33 - Periumbilical pain (2) SBO (small bowel obstruction) Current Visit: Yes Status: Acute Assessment and plan: No evidence of mechanical obstruction on acute abdominal series x-ray. Started on clear liquid diet 10/21 and tolerated Advance diet as tolerated, patient is having BM GI evaluation follow up is pending (3) Crohn's disease involving terminal ileum Current Visit: Yes Status: Chronic Assessment and plan: Acute flare and paralytic ileus. Change solumedrol to prednisone GI is following CT enterography ordered Capsule endoscopy scheduled for 11/02 Continue current management (4) Morbid obesity Current Visit: Yes Status: Chronic Assessment and plan: lifestyle modificatio (5) Leukocytosis Current Visit: Yes Status: Acute Assessment and plan: Possibly due to steroids, continue to monitor. No evidence of infection. Qualifiers: Leukocytosis type: unspecified Qualified Code(s): D72.829 - Elevated white blood cell count, unspecified - Time Spent With Patient Total time spent is greater than 50% in coordination of care (as documented) at patient's floor/unit and/or counseling patient: - Subjective Interval history: Seen and evaluated at the bedside She is tolerating clear liquid diet, having bowel movements, passing flatness. She denies abdominal pain. Gen. surgery recommendations appreciated. GI follow-up is pending. We will advance her diet, change her Solu-Medrol to prednisone, continue home medications. If GI agrees, the patient might be discharged today. - Constitutional Vitals: Temp Pulse Resp BP Pulse Ox 98.3 F 63 20 149/99 97 10/22/17 11:00 10/22/17 11:00 10/22/17 11:00 10/22/17 11:00 10/22/17 11:00 General appearance: Present: A&O X 3, morbidly obese, pleasant, no acute distress, answers questions appropriately - Head Head exam: Present: atraumatic, normocephalic - Eye Eye exam: Present: PERRL, conjuntiva pink, sclera anicteric Pupils: Present: PERRL - Neck Neck exam general surgery: Present: supple, trachea midline. Absent: lymphadenopathy - Respiratory Respiratory exam: Present: CTAB. Absent: accessory muscle use, rales, rhonchi, wheezes - Cardiovascular Cardiovascular exam: Present: RRR, +S1, +S2. Absent: diastolic murmur, gallop, rubs, systolic murmur - GI/Abdominal GI/Abdominal exam: Present: normal bowel sounds, soft, no peritoneal signs. Absent: distended, tenderness - Extremities Exam Extremities exam: Present: warm, radial pulses palpable and symmetrical. Absent : calf tenderness, cyanotic, pedal edema - Neurological Exam Neurological exam: Present: alert, CN II-XII intact, oriented X3, no focal deficits. Absent: pronater drift, facial droop, speech deficit - Skin Skin exam: Present: dry, intact Internal Medicine: Result - Labs CBC & Chem 7: 10/22/17 05:28 10/22/17 05:28 Labs: Short CBC 10/22/17 Range/Units 05:28 WBC 12.1 H (4.3-11.1) K/mcL Hgb 13.1 (11.5-15.4) g/dL Hct 40.3 (35.3-44.9) % Plt Count 306 (140-400) K/mcL Neutrophils # 9.7 H (1.6-8.9) K/mcL BMP 10/22/17 05:28 Sodium 140 Potassium 3.8 Chloride 111 H Carbon Dioxide 25 BUN 9 Creatinine 0.53 L Glucose 109 H Calcium 8.8 Consult Discharge Plan - Plan Referrals: Marietta Waller CNP [Primary Care Provider] -
--- NOTE | 2017-10-22 12:23 | General Surgery Progress Note ---
Date of Encounter: 10/22/17 Time of Encounter: 11:50 Subjective Narrative: General Surgery - Patient feeling well; denies abdominal pain. Appears to be tolerating liquid diet. Afebrile, 98.3, pulse 63, respirations 20, blood pressure earlier today 129/ 88 - 119/77. Most recently obtained - 149/99. Uncertain if this is accurate Laboratories: White count has improved to 12.1, neutrophils diminished and 9.7%. Electrolytes notable for chloride of 111 otherwise normal electrolytes, BUN, creatinine. Impression: Acute terminal ileitis presumably due to Crohn's. Patient appears to be responding to medical management Will sign off. Call if needed. Defer continued medical management to Gastroenterology v Hospitalist Service. Objective Vital Signs - Last 8 Hours Temp Pulse Resp BP Pulse Ox 10/22/17 11:00 98.3 F 63 20 149/99 97 10/22/17 07:18 97.7 F 58 15 119/77 96 Intake and Output 10/21/17 10/22/17 10/22/17 23:59 07:59 15:59 Intake Total 1920 / 1920 0 / 0 600 / 600 Output Total 100 / 100 Balance 1820 / 1820 0 / 0 600 / 600 Intake: IV Fluids 1000 / 1000 0.9 % Sodium Chloride 1,000 ML 1000 / 1000 @ 80 mls/hr IVC .[id number] [facility] Rx #:[id number] Oral 920 / 920 0 / 0 600 / 600 Output: Urine 100 / 100 Other: Meal Clears CLEARS Percent of Meal Consumed 0% Stool Size Moderate Stool Consistency soft Stool Characteristics Normal for Patient Stool Color Brown Dark Red Blood # Voids 0 Weight 132 kg Patient Weight 10/22/17 23:59 Weight 132 kg - Labs 10/22/17 05:28 10/22/17 05:28 Diabetes panel 10/22/17 Range/Units 05:28 Sodium 140 (136-145) mEq/L Potassium 3.8 (3.5-5.1) mEq/L Chloride 111 H (98-107) mEq/L Carbon Dioxide 25 (23-29) mEq/L BUN 9 (6-20) mg/dL Creatinine 0.53 L (0.60-1.20) mg/dL Glucose 109 H (70-105) mg/dL Calcium 8.8 (8.6-10.3) mg/dL Calcium panel 10/22/17 Range/Units 05:28 Calcium 8.8 (8.6-10.3) mg/dL Pituitary panel 10/22/17 Range/Units 05:28 Sodium 140 (136-145) mEq/L Potassium 3.8 (3.5-5.1) mEq/L Chloride 111 H (98-107) mEq/L Carbon Dioxide 25 (23-29) mEq/L BUN 9 (6-20) mg/dL Creatinine 0.53 L (0.60-1.20) mg/dL Glucose 109 H (70-105) mg/dL Calcium 8.8 (8.6-10.3) mg/dL Adrenal panel 10/22/17 Range/Units 05:28 Sodium 140 (136-145) mEq/L Potassium 3.8 (3.5-5.1) mEq/L Chloride 111 H (98-107) mEq/L Carbon Dioxide 25 (23-29) mEq/L BUN 9 (6-20) mg/dL Creatinine 0.53 L (0.60-1.20) mg/dL Glucose 109 H (70-105) mg/dL Calcium 8.8 (8.6-10.3) mg/dL Consult Discharge Plan - Plan Referrals: Marietta Waller, [place] [Primary Care Provider] -
--- NOTE | 2017-10-22 12:30 | Gastroenterology Progress Note ---
<Raj Lorenzo Park - Last Filed: 10/22/17 12:27> Date of Encounter: 10/22/17 Time of Encounter: 10:45 - Assessment and plan (1) Colitis Status: Acute Assessment and plan: Symptoms improved. Possible Crohn's disease. Last colonoscopy with severe inflammation at ileocecal valve. ASCA and ANCA were normal 05/25/2017. Capsule endoscopy scheduled for 11/02/2017. Follow up in GI office 3 weeks after capsule endoscopy. No indication for colonoscopy at this time. Recommend Prednisone taper at discharge. Check CT enterography prior to discharge. TPMT pending. - Time Spent With Patient Total time spent is greater than 50% in coordination of care (as documented) at patient's floor/unit and/or counseling patient: - Subjective Interval history: Pt reports feeling much better and is without acute complaint at this time. She is having daily BM with no melena or hmeatochezia. She denies abdominal pain. - Constitutional Vitals: Temp Pulse Resp BP Pulse Ox 98.3 F 63 20 149/99 97 10/22/17 11:00 10/22/17 11:00 10/22/17 11:00 10/22/17 11:00 10/22/17 11:00 General appearance: Present: cooperative, A&O X 3, no acute distress, answers questions appropriately - Head Head exam: Present: atraumatic, normocephalic - Eye Eye exam: Present: normal appearance, sclera anicteric - ENT ENT exam: Present: mucous membranes moist - Neck Neck exam general surgery: Present: normal inspection, trachea midline - Respiratory Respiratory exam: Present: CTAB - Cardiovascular Cardiovascular exam: Present: RRR, +S1, +S2 - GI/Abdominal GI/Abdominal exam: Present: soft, no peritoneal signs. Absent: distended, firm , guarding, tenderness - Rectal Rectal exam: Present: deferred - Extremities Exam Extremities exam: Present: warm - Neurological Exam Neurological exam: Present: no focal deficits - Psychiatric Psychiatric exam: Present: normal affect, normal mood - Skin Skin exam: Present: dry, intact, normal color, warm Results - Labs CBC & Chem 7: 10/22/17 05:28 10/22/17 05:28 Labs: Last Result Calcium 8.8 mg/dL (8.6-10.3) 10/22/17 05:28 Entire Visit Hgb 13.1 g/dL (11.5-15.4) 10/22/17 05:28 Hct 40.3 % (35.3-44.9) 10/22/17 05:28 Total Bilirubin 0.5 mg/dL (0.3-1.0) 10/20/17 05:20 AST 22 Units/L (13-39) 10/20/17 05:20 ALT 30 Units/L (7-52) 10/20/17 05:20 Lipase 16 Units/L (11-82) 10/19/17 20:09 Consult Discharge Plan - Plan Instructions: Prednisone (By mouth) Referrals: Ariel Tyler MD [Partnered Physician] - 10/30/17 1:30 pm Prescriptions: predniSONE [PredniSONE] 40 mg PO DAILY #20 tablet <Laureano Ridley - Last Filed: 11/09/17 08:50> Date of Encounter: 10/22/17 - Time Spent With Patient Total time spent is greater than 50% in coordination of care (as documented) at patient's floor/unit and/or counseling patient: - Constitutional Vitals: Temp Pulse Resp BP Pulse Ox 97.5 F L 68 15 138/94 96 10/23/17 10:41 10/23/17 10:41 10/23/17 10:41 10/23/17 10:41 10/23/17 10:41 Results - Labs CBC & Chem 7: 10/22/17 05:28 10/22/17 05:28 Labs: Last Result Calcium 8.8 mg/dL (8.6-10.3) 10/22/17 05:28 Entire Visit Hgb 13.1 g/dL (11.5-15.4) 10/22/17 05:28 Hct 40.3 % (35.3-44.9) 10/22/17 05:28 Total Bilirubin 0.5 mg/dL (0.3-1.0) 10/20/17 05:20 AST 22 Units/L (13-39) 10/20/17 05:20 ALT 30 Units/L (7-52) 10/20/17 05:20 Lipase 16 Units/L (11-82) 10/19/17 20:09
[2017-10-22] MEDS: (Budesonide [Entocort Ec] 3 MG) PO SCH ×2 (13:15→17:03)
[2017-10-22] MEDS: predniSONE 20 MG TABLET PO SCH (17:10)
[2017-10-22] MEDS: Nicotine 21 MG PATCH.TD24 TD SCH (21:59)
[2017-10-22] MEDS: Melatonin 3 MG TABLET PO SCH (21:59)
[2017-10-23] MEDS: (Budesonide [Entocort Ec] 3 MG) PO SCH ×2 (00:56→08:33)
[2017-10-23] MEDS: Nicotine 21 MG PATCH.TD24 TD SCH (08:38)
[2017-10-23] MEDS: predniSONE 20 MG TABLET PO SCH (08:38)
[2017-10-23 10:42] VITALS: BP 138/94
--- NOTE | 2017-10-23 11:20 | Discharge Summary ---
- NOTES TO OUTPATIENT PROVIDER Notes to Outpatient Provider: Admitted for Paralytic ileus due to crohns flare, she is discharged on tapering doses of prednisone with follow up appointment with GI for capsule endoscopy on 11/02/17 Orders not resulted at time of discharge: Pending orders 10/20/17 10:10 TPMT Genotyping 4 Variants Routine Date of Encounter: 10/23/17 Time of Encounter: 11:18 - Discharge Diagnosis (1) Abdominal pain Priority: Primary Status: Resolved Qualifiers: Abdominal location: periumbilical Qualified Code(s): R10.33 - Periumbilical pain (2) SBO (small bowel obstruction) Priority: Primary Status: Resolved (3) Crohn's disease involving terminal ileum Priority: Secondary Status: Chronic (4) Morbid obesity Priority: Secondary Status: Chronic (5) Leukocytosis Priority: Primary Status: Acute Qualifiers: Leukocytosis type: unspecified Qualified Code(s): D72.829 - Elevated white blood cell count, unspecified Hospital course: Ms. Dailey is a 21 year old female with hx of Suspected Crohn's disease, who was admitted f following complains of abdominal pain with nausea and vomiting. The patient had been following up with gastroenterology and is on budesonide.. On admission CT of abdomen and pelvis obtained in the ER demonstrated circumferential mural thickening of the terminal ileum with surrounding fat stranding associated proximal obstruction of the small bowel with multiple air fluid filled loops of bowel. Compared to the CT done in May 2017 it showed progression and increased dilatation. There associated several enlarged lymph nodes in the mesentery believes to be reactive. The patient was awaiting a capsular endoscopy by GI prior to her presentation. She had a colonoscopy in May which demonstrated acute inflammation of the terminal ileum. She was admitted and managed for acute Crohn's disease flare with ileitis and paralytic ileus. An acute abdomen series done revealed no mechanical obstruction. She was managed conservatively with intravenous fluid hydration, and Solu-Medrol. She improved and was started on gradual taper diet she tolerated. Repeat CT enterography prior to discharge showed marked improvement in the appearance of the abdomen and pelvis with dramatic reduction in the amount of acute inflammation involving the terminal and distal ileum resolution of the small bowel obstruction previous president was demonstrated. Mild thickening in the distal 25 cm of the abdomen consistent with Crohn's disease. No skip lesions was demonstrated. The patient continues to have mild benign mesenteric adenopathy. She was seen and examined at the bedside this morning, she has no new complaints. She is tolerating po and ambulatory. Per GI: ASCA and ANCA were normal 05/25/2017. Capsule endoscopy scheduled for . Follow up in GI office 3 weeks after capsule endoscopy. No indication for colonoscopy at this time. Recommend Prednisone taper at discharge. She is discharged home on prednisone taper and home dose of budesoide, to follow up with PCP and GI 3 mins spent on tobacco cessation therapy Plan of care discussed with patient, verbalized understanding Discharge discussed with: patient, nurse, case management - Time Spent with Patient Total time spent providing and/or coordinating discharge services: Greater than 30 minutes - Discharge Medications Prescriptions: predniSONE [PredniSONE] 40 mg PO DAILY #20 tablet Home Medications: Budesonide [Entocort EC] 3 mg PO TID 10/20/17 [History] Escitalopram [Lexapro] 10 mg PO DAILY 10/20/17 [History] Levonorgestrel [Mirena] 52 mg IY AD 10/20/17 [History] predniSONE [PredniSONE] 40 mg PO DAILY #20 tablet 10/23/17 [Rx] Allergies/Adverse Reactions: 3 Allergy/AdvReac Type Severity Reaction Status Date / Time No Known Allergies Allergy Verified 05/25/17 13:43 Date of admission: 10/20/17 01:57 Primary care physician: Marietta Waller, Consults: 10/20/17 03:21 Consult to Gastroenterology [CONS] Routine Consulting Provider: [facility] Reason for Consult: Acute Crohn's flare up.. SBO Time Notified: 07:00 Call Completed: Yes 10/20/17 13:42 Consult to Surgery [CONS] Routine Consulting Provider: [facility] Reason for Consult: Abd pain Time Notified: 13:43 Call Completed: No Discharging clinician: Himanshu Ortiz Anticipated date of discharge: 10/23/17 - Constitutional Vitals: Temp Pulse Resp BP Pulse Ox 97.5 F L 68 15 138/94 96 10/23/17 10:41 10/23/17 10:41 10/23/17 10:41 10/23/17 10:41 10/23/17 10:41 General appearance: Present: A&O X 3, morbidly obese, pleasant, no acute distress, answers questions appropriately - Head Head exam: Present: atraumatic, normocephalic - Eye Eye exam: Present: PERRL, conjuntiva pink, sclera anicteric Pupils: Present: PERRL - Neck Neck exam general surgery: Present: supple, trachea midline. Absent: lymphadenopathy - Respiratory Respiratory exam: Present: CTAB. Absent: accessory muscle use, rales, rhonchi, wheezes - Cardiovascular Cardiovascular exam: Present: RRR, +S1, +S2. Absent: diastolic murmur, gallop, rubs, systolic murmur - GI/Abdominal GI/Abdominal exam: Present: normal bowel sounds, soft, no peritoneal signs. Absent: distended, tenderness - Extremities Exam Extremities exam: Present: warm, radial pulses palpable and symmetrical. Absent : calf tenderness, cyanotic, pedal edema - Neurological Exam Neurological exam: Present: alert, CN II-XII intact, oriented X3, no focal deficits. Absent: pronater drift, facial droop, speech deficit - Skin Skin exam: Present: dry, intact - Patient Status Disposition: Home, Self-Care Condition: Good Functional capacity at discharge: independent ambulation Overall status at discharge: patient is back to baseline - Discharge Instructions Instructions: Prednisone (By mouth) Follow Up With: Ariel Tyler MD [Partnered Physician] - 10/30/17 1:30 pm - Diet and Activity Activity: resume usual activities as tolerated Diet: low fat, low cholesterol
[2017-10-25 15:30] LABS: Thiopurine Methy Genotyp NEG/NEG; Thiopurine Methyl Gen Specimen WHOLE BLOOD
[2017-10-26 08:22] LABS: TPMT Predicted Phenotype NORMAL
== END 2017-10-23 12:01 | disposition home or self-care (01) | DRG 245 ==
LOC: 3ANU 19:29 → EMEROO 19:29 → 3ANU 10-20 01:48 → SUATTDRO 10-20 01:57
PROVIDERS: ADMIT Internal Medicine; ATTEND Internal Medicine

== ENCOUNTER 2017-12-07 09:20 | Inpatient (IN) ==
[2017-12-07] MEDS ORDERED: 0.9 % Sodium Chloride 1,000 ML IVC ONE (09:25)
[2017-12-07] MEDS ORDERED: GI Cocktail 40 ML EACH PO ONE (09:32)
[2017-12-07] MEDS ORDERED: methylPREDNISolone 125 MG/2 ML VIAL IVP ONE (09:34)
[2017-12-07 09:48] LABS: Basophils # 0.1 K/mcL (0.0-0.2); Basophils % 0.2 %; Eosinophils % 0.1 %; Hematocrit 43.6 % (35.3-44.9); Hemoglobin 15.2 g/dL (11.5-15.4); Immature Granulocytes % 0.6 % (0-4); Lymphocytes # 1.8 K/mcL (0.6-4.6); Lymphocytes % 8.9 %; Mean Corpuscular HGB Conc 34.9 g/dL (31.6-35.5); Mean Corpuscular Hemoglobin 29.9 pg (28.0-33.3); Mean Corpuscular Volume 85.7 fL (83.0-100.0); Mean Platelet Volume 9.5 fL (9.4-12.4); Monocytes # 0.7 K/mcL (0.0-1.3); Monocytes % 3.6 %; Neutrophils # 17.7 K/mcL (1.6-8.9); Platelet Count 420 K/mcL (140-400); Red Blood Count 5.09 M/mcL (3.82-4.97); Red Cell Distribution Width 12.9 % (11.5-14.5); Segmented Neutrophils % 86.6 %
--- NOTE | 2017-12-07 09:50 | Emergency Department Note ---
Disposition Clinical Impression: Small bowel obstruction, Crohn's disease involving terminal ileum Abdominal pain Qualifiers: Abdominal location: unspecified location Qualified Code(s): R10.9 - Unspecified abdominal pain Disposition: Admitted As Inpatient Condition: Good Referrals: Win Mccollum MD [Primary Care Provider] - Forms: ED Satisfaction Letter, Work/School Release Time of Disposition: 12:00 Abdominal Pain HPI - General Chief Complaint: ED Abdominal Pain Stated Complaint: Abdominal pain Time Seen by Provider: 12/07/17 09:25 Source: patient Mode of arrival: ambulatory Limitations: no limitations Nursing Notes Reviewed: Yes Vital Signs Reviewed: Yes - History of Present Illness HPI Narrative: Patient presents to the ED with the chief complaint of abdominal pain. Patient states that she has a history of Crohn's disease. However, after independent medical record review. She has not had any formal diagnosis made. She is followed by gastroenterology. She has had a colonoscopy in the past which showed severe inflammation at the ileocecal valve, but her lab workup was negative. She was admitted here last month for similar symptoms and states that she got better from this. Her diagnosis at discharge was colitis and both surgery and gastroenterology did not recommend colonoscopy at that time. She is presenting again for return of her abdominal pain that started yesterday afternoon. Denies any fever, chills, chest pain, shortness of breath, vomiting , diarrhea, melena, hematochezia, dysuria or hematuria. She has been nauseated. No rashes. Pain Scale: 10 - Related Data Home Medications Medication Instructions Recorded Confirmed Escitalopram [Lexapro] 10 mg PO DAILY 10/20/17 12/07/17 Levonorgestrel [Mirena] 52 mg IY AD 10/20/17 12/07/17 BuPROPion XL (24 HR) [Wellbutrin 150 mg PO DAILY 12/07/17 12/07/17 XL] Nicotine Patch [Nicoderm] 21 mg TD DAILY 12/07/17 12/07/17 Allergies Allergy/AdvReac Type Severity Reaction Status Date / Time No Known Allergies Allergy Verified 05/25/17 13:43 Review of Systems: As reviewed in the HPI. All other systems reviewed are negative or normal. Abdominal Pain PMH - Past Medical History Medical history: Reports: other Female Surgical History: Reports: no surgical history Psychiatric history: Reports: no psych history - Social History Smoking status: Current every day smoker Alcohol use: Reports: occasionally Drug use: Reports: none Physical Exam CONSTITUTIONAL: [well appearing in no acute distress] SKIN: [Warm, dry, and intact without rash, multiple well-healed cutting pratt on her forearms and breasts] EYES: [extraocular movements are grossly intact, clear conjunctiva] HENT: [Normocephalic, atraumatic, moist mucus membranes] NECK: [no obvious swelling, normal range of motion] PULMONARY: [normal chest rise and fall, no respiratory distress or stridor CARDIOVASCULAR: [regular rate, distal extremities are warm and well perfused] GASTROINSTESTINAL: [Nondistended, morbidly obese, mild tenderness in epigastrium and R abd, no guarding or rebound] GENITOURINARY: [deferred] NEUROLOGIC: [normal speech, moves all extremities] MUSCULOSKELETAL: [no gross deformities, atraumatic] PSYCHIATRIC: [very strange affect] - General Limitations: no limitations General appearance: alert, in no apparent distress Course Course Narrative: Patient presenting with abdominal pain. Possible Crohn's diagnosis. We will get labs and likely CT once her creatinine is back - Reevaluation(s) Reevaluation #1: CT shows developing small bowel obstruction. Patient is not vomiting, so I do not think. NG tube is indicated at this time. She has seen Dr. renteria in the past and did request to see him again, so I called him and spoke with him. We both agreed that this was not a surgical case at this time and that we have recommended admission to the hospital service for medical management and consultation to GI for management of her suspected Crohn's disease. I spoke with the admitting hospitalist Dr. Saez and she was agreeable with admission. Vital Signs Temperature 97.7 F 12/07/17 09:22 Pulse Rate 108 12/07/17 09:22 Respiratory Rate 16 12/07/17 09:22 Blood Pressure 156/112 12/07/17 09:22 O2 Sat by Pulse Oximetry 98 12/07/17 09:22 Temperature 97.7 F 12/07/17 09:27 Pulse Rate 94 12/07/17 11:40 Respiratory Rate 17 12/07/17 11:40 Blood Pressure 142/108 12/07/17 11:40 O2 Sat by Pulse Oximetry 97 12/07/17 11:40 Oxygen Delivery Oxygen Delivery Room Air Abdominal Pain - Lab Data Result diagrams: 12/07/17 09:36 12/07/17 09:25 Lab Results 12/07/17 12/07/17 12/07/17 Range/Units 09:25 09:36 09:36 WBC 20.5 H (4.3-11.1) K/mcL RBC 5.09 H (3.82-4.97) M/mcL Hgb 15.2 (11.5-15.4) g/dL Hct 43.6 (35.3-44.9) % MCV 85.7 (83.0-100.0) fL MCH 29.9 (28.0-33.3) pg MCHC 34.9 (31.6-35.5) g/dL RDW 12.9 (11.5-14.5) % Plt Count 420 H (140-400) K/mcL MPV 9.5 (9.4-12.4) fL Immature Gran % 0.6 (0-4) % Seg Neutrophils % 86.6 % Lymphocytes % 8.9 % Monocytes % 3.6 % Eosinophils % 0.1 % Basophils % 0.2 % Neutrophils # 17.7 H (1.6-8.9) K/mcL Lymphocytes # 1.8 (0.6-4.6) K/mcL Monocytes # 0.7 (0.0-1.3) K/mcL Eosinophils # 0.0 (0.0-0.6) K/mcL Basophils # 0.1 (0.0-0.2) K/mcL ESR (0-15) mm/hr Sodium 138 (136-145) mEq/L Potassium 3.7 (3.5-5.1) mEq/L Chloride 108 H (98-107) mEq/L Carbon Dioxide 22 L (23-29) mEq/L BUN 11 (6-20) mg/dL Creatinine 0.59 L (0.60-1.20) mg/dL Est GFR ( Amer) > 60 (> 60) Est GFR (Non-Af Amer) > 60 (> 60) BUN/Creatinine Ratio 19 (6-26) Glucose 174 H (70-105) mg/dL Calculated Osmolality 290 (280-300) Lactic Acid 1.6 (0.5-2.2) mmol/L Calcium 10.2 (8.6-10.3) mg/dL Total Bilirubin 0.6 (0.3-1.0) mg/dL Direct Bilirubin 0.1 (0.0-0.2) mg/dL Indirect Bilirubin 0.5 (0.0-1.2) mg/dL AST 22 (13-39) Units/L ALT 46 (7-52) Units/L Alkaline Phosphatase 72 (34-104) Units/L C-Reactive Protein 17 H (Less than 10) mg/L Serum Total Protein 8.0 (6.4-8.9) g/dL Albumin 4.3 (3.5-5.7) g/dL Globulin 3.7 H (2.4-3.5) g/dL Albumin/Globulin Ratio 1.2 (1.1-2.2) Lipase 13 (11-82) Units/L Urine Color (Yellow) Urine Clarity (Clear) Urine pH (5.0-8.0) pH Units Ur Specific [place] (1.010-1.025) Urine Protein (Neg-Trace) mg/dL Urine Glucose (UA) (Normal) mg/dL Urine Ketones (Negative) mg/dL Urine Blood (Negative) Urine Nitrite (Negative) Urine Bilirubin (Negative) Urine Urobilinogen (Normal) mg/dL Ur Leukocyte Esterase (Negative) Amorphous Sediment (Few) Ur Culture Indicated? (NO) Urine Test (Negative) 12/07/17 12/07/17 12/07/17 Range/Units 09:36 09:44 09:44 WBC (4.3-11.1) K/mcL RBC (3.82-4.97) M/mcL Hgb (11.5-15.4) g/dL Hct (35.3-44.9) % MCV (83.0-100.0) fL MCH (28.0-33.3) pg MCHC (31.6-35.5) g/dL RDW (11.5-14.5) % Plt Count (140-400) K/mcL MPV (9.4-12.4) fL Immature Gran % (0-4) % Seg Neutrophils % % Lymphocytes % % Monocytes % % Eosinophils % % Basophils % % Neutrophils # (1.6-8.9) K/mcL Lymphocytes # (0.6-4.6) K/mcL Monocytes # (0.0-1.3) K/mcL Eosinophils # (0.0-0.6) K/mcL Basophils # (0.0-0.2) K/mcL ESR 44 H (0-15) mm/hr Sodium (136-145) mEq/L Potassium (3.5-5.1) mEq/L Chloride (98-107) mEq/L Carbon Dioxide (23-29) mEq/L BUN (6-20) mg/dL Creatinine (0.60-1.20) mg/dL Est GFR ( Amer) (> 60) Est GFR (Non-Af Amer) (> 60) BUN/Creatinine Ratio (6-26) Glucose (70-105) mg/dL Calculated Osmolality (280-300) Lactic Acid (0.5-2.2) mmol/L Calcium (8.6-10.3) mg/dL Total Bilirubin (0.3-1.0) mg/dL Direct Bilirubin (0.0-0.2) mg/dL Indirect Bilirubin (0.0-1.2) mg/dL AST (13-39) Units/L ALT (7-52) Units/L Alkaline Phosphatase (34-104) Units/L C-Reactive Protein (Less than 10) mg/L Serum Total Protein (6.4-8.9) g/dL Albumin (3.5-5.7) g/dL Globulin (2.4-3.5) g/dL Albumin/Globulin Ratio (1.1-2.2) Lipase (11-82) Units/L Urine Color Dark Yellow (Yellow) Urine Clarity Turbid A (Clear) Urine pH 5.0 (5.0-8.0) pH Units Ur Specific [place] > 1.030 H (1.010-1.025) Urine Protein Trace (Neg-Trace) mg/dL Urine Glucose (UA) Normal (Normal) mg/dL Urine Ketones Trace H (Negative) mg/dL Urine Blood Negative (Negative) Urine Nitrite Negative (Negative) Urine Bilirubin Small H (Negative) Urine Urobilinogen Normal (Normal) mg/dL Ur Leukocyte Esterase Negative (Negative) Amorphous Sediment Many H (Few) Ur Culture Indicated? NO (NO) Urine Test Negative (Negative)
[2017-12-07] MEDS ORDERED: Hyoscyamine 0.5 MG/ML MLS IVP ONE (09:52)
[2017-12-07 10:05] LABS: Bilirubin,Urine Small (Negative); Blood,Urine Negative (Negative); Clarity,Urine Turbid (Clear); Color,Urine Dark Yellow (Yellow); Glucose,Urine (UA) Normal (Normal); Ketones,Urine Trace mg/dL (Negative); Leukocyte Esterase,Urine Negative (Negative); Nitrite,Urine Negative (Negative); Protein,Urine Trace mg/dL (Neg-Trace); Specific Gravity,Urine > 1.030 (1.010-1.025); Urobilinogen,Urine Normal (Normal)
[2017-12-07 10:17] LABS: Alanine Aminotransferase 46 Units/L (7-52); Albumin 4.3 g/dL (3.5-5.7); Albumin/Globulin Ratio 1.2 (1.1-2.2); Alkaline Phosphatase 72 Units/L (34-104); Aspartate Amino Transferase 22 Units/L (13-39); BUN/Creatinine Ratio 19 (6-26); Bilirubin,Direct 0.1 mg/dL (0.0-0.2); Bilirubin,Indirect 0.5 mg/dL (0.0-1.2); Bilirubin,Total 0.6 mg/dL (0.3-1.0); Blood Urea Nitrogen 11 mg/dL (6-20); C-Reactive Protein 17 mg/L (Less than 10); Calcium 10.2 mg/dL (8.6-10.3); Carbon Dioxide 22 mEq/L (23-29); Chloride 108 mEq/L (98-107); Globulin 3.7 g/dL (2.4-3.5); Glucose 174 mg/dL (70-105); Lipase 13 Units/L (11-82); Osmolality,Calculated 290 (280-300); Potassium 3.7 mEq/L (3.5-5.1); Sodium 138 mEq/L (136-145); eGFR For African Americans > 60 (> 60); eGFR For Non-African Americans > 60 (> 60)
[2017-12-07 10:20] LABS: Amorphous Sediment,Urine Many (Few)
[2017-12-07] MEDS ORDERED: Isovue-370 500 ML INFUS..BTL IV ONE (10:25)
--- NOTE | 2017-12-07 10:48 | Emergency Department Note ---
Disposition Clinical Impression: Abdominal pain Qualifiers: Abdominal location: unspecified location Qualified Code(s): R10.9 - Unspecified abdominal pain Disposition: Still a Patient Referrals: Win Mccollum MD [Primary Care Provider] - Forms: ED Satisfaction Letter, Work/School Release General Adult HPI - General Chief complaint: ED Abdominal Pain Stated complaint: Abdominal pain Time Seen by Provider: 12/07/17 09:25 Source: patient Mode of arrival: ambulatory Limitations: no limitations - History of Present Illness Pain Scale: 10 - Related Data Home Medications Medication Instructions Recorded Confirmed Budesonide [Entocort EC] 3 mg PO TID 10/20/17 10/20/17 Escitalopram [Lexapro] 10 mg PO DAILY 10/20/17 10/20/17 Levonorgestrel [Mirena] 52 mg IY AD 10/20/17 10/20/17 Previous Rx's Medication Instructions Recorded predniSONE [PredniSONE] 40 mg PO DAILY #20 tablet 10/23/17 Allergies Allergy/AdvReac Type Severity Reaction Status Date / Time No Known Allergies Allergy Verified 05/25/17 13:43 Past Medical History - Past Medical History Medical history: Reports: other Surgical history: Reports: non-contributory Psychiatric history: Reports: no psych history - Social History Smoking Status: Current every day smoker Smokeless Tobacco Status: No Alcohol use: Reports: occasionally Drug use: Reports: none Physical Exam - General Limitations: no limitations General appearance: alert, in no apparent distress Course Vital Signs Temperature 97.7 F 12/07/17 09:22 Pulse Rate 108 12/07/17 09:22 Respiratory Rate 16 12/07/17 09:22 Blood Pressure 156/112 12/07/17 09:22 O2 Sat by Pulse Oximetry 98 12/07/17 09:22 Temperature 97.7 F 12/07/17 09:27 Pulse Rate 93 12/07/17 09:44 Respiratory Rate 16 12/07/17 09:27 Blood Pressure 133/99 12/07/17 09:44 O2 Sat by Pulse Oximetry 98 12/07/17 09:44 Oxygen Delivery Oxygen Delivery Room Air Medical Decision Making - Lab Data Result diagrams: 12/07/17 09:36 12/07/17 09:25 Lab Results 12/07/17 12/07/17 12/07/17 Range/Units 09:25 09:36 09:36 WBC 20.5 H (4.3-11.1) K/mcL RBC 5.09 H (3.82-4.97) M/mcL Hgb 15.2 (11.5-15.4) g/dL Hct 43.6 (35.3-44.9) % MCV 85.7 (83.0-100.0) fL MCH 29.9 (28.0-33.3) pg MCHC 34.9 (31.6-35.5) g/dL RDW 12.9 (11.5-14.5) % Plt Count 420 H (140-400) K/mcL MPV 9.5 (9.4-12.4) fL Immature Gran % 0.6 (0-4) % Seg Neutrophils % 86.6 % Lymphocytes % 8.9 % Monocytes % 3.6 % Eosinophils % 0.1 % Basophils % 0.2 % Neutrophils # 17.7 H (1.6-8.9) K/mcL Lymphocytes # 1.8 (0.6-4.6) K/mcL Monocytes # 0.7 (0.0-1.3) K/mcL Eosinophils # 0.0 (0.0-0.6) K/mcL Basophils # 0.1 (0.0-0.2) K/mcL ESR (0-15) mm/hr Sodium 138 (136-145) mEq/L Potassium 3.7 (3.5-5.1) mEq/L Chloride 108 H (98-107) mEq/L Carbon Dioxide 22 L (23-29) mEq/L BUN 11 (6-20) mg/dL Creatinine 0.59 L (0.60-1.20) mg/dL Est GFR ( Amer) > 60 (> 60) Est GFR (Non-Af Amer) > 60 (> 60) BUN/Creatinine Ratio 19 (6-26) Glucose 174 H (70-105) mg/dL Calculated Osmolality 290 (280-300) Lactic Acid 1.6 (0.5-2.2) mmol/L Calcium 10.2 (8.6-10.3) mg/dL Total Bilirubin 0.6 (0.3-1.0) mg/dL Direct Bilirubin 0.1 (0.0-0.2) mg/dL Indirect Bilirubin 0.5 (0.0-1.2) mg/dL AST 22 (13-39) Units/L ALT 46 (7-52) Units/L Alkaline Phosphatase 72 (34-104) Units/L C-Reactive Protein 17 H (Less than 10) mg/L Serum Total Protein 8.0 (6.4-8.9) g/dL Albumin 4.3 (3.5-5.7) g/dL Globulin 3.7 H (2.4-3.5) g/dL Albumin/Globulin Ratio 1.2 (1.1-2.2) Lipase 13 (11-82) Units/L Urine Color (Yellow) Urine Clarity (Clear) Urine pH (5.0-8.0) pH Units Ur Specific [place] (1.010-1.025) Urine Protein (Neg-Trace) mg/dL Urine Glucose (UA) (Normal) mg/dL Urine Ketones (Negative) mg/dL Urine Blood (Negative) Urine Nitrite (Negative) Urine Bilirubin (Negative) Urine Urobilinogen (Normal) mg/dL Ur Leukocyte Esterase (Negative) Amorphous Sediment (Few) Ur Culture Indicated? (NO) Urine Test (Negative) 12/07/17 12/07/17 12/07/17 Range/Units 09:36 09:44 09:44 WBC (4.3-11.1) K/mcL RBC (3.82-4.97) M/mcL Hgb (11.5-15.4) g/dL Hct (35.3-44.9) % MCV (83.0-100.0) fL MCH (28.0-33.3) pg MCHC (31.6-35.5) g/dL RDW (11.5-14.5) % Plt Count (140-400) K/mcL MPV (9.4-12.4) fL Immature Gran % (0-4) % Seg Neutrophils % % Lymphocytes % % Monocytes % % Eosinophils % % Basophils % % Neutrophils # (1.6-8.9) K/mcL Lymphocytes # (0.6-4.6) K/mcL Monocytes # (0.0-1.3) K/mcL Eosinophils # (0.0-0.6) K/mcL Basophils # (0.0-0.2) K/mcL ESR 44 H (0-15) mm/hr Sodium (136-145) mEq/L Potassium (3.5-5.1) mEq/L Chloride (98-107) mEq/L Carbon Dioxide (23-29) mEq/L BUN (6-20) mg/dL Creatinine (0.60-1.20) mg/dL Est GFR ( Amer) (> 60) Est GFR (Non-Af Amer) (> 60) BUN/Creatinine Ratio (6-26) Glucose (70-105) mg/dL Calculated Osmolality (280-300) Lactic Acid (0.5-2.2) mmol/L Calcium (8.6-10.3) mg/dL Total Bilirubin (0.3-1.0) mg/dL Direct Bilirubin (0.0-0.2) mg/dL Indirect Bilirubin (0.0-1.2) mg/dL AST (13-39) Units/L ALT (7-52) Units/L Alkaline Phosphatase (34-104) Units/L C-Reactive Protein (Less than 10) mg/L Serum Total Protein (6.4-8.9) g/dL Albumin (3.5-5.7) g/dL Globulin (2.4-3.5) g/dL Albumin/Globulin Ratio (1.1-2.2) Lipase (11-82) Units/L Urine Color Dark Yellow (Yellow) Urine Clarity Turbid A (Clear) Urine pH 5.0 (5.0-8.0) pH Units Ur Specific [place] > 1.030 H (1.010-1.025) Urine Protein Trace (Neg-Trace) mg/dL Urine Glucose (UA) Normal (Normal) mg/dL Urine Ketones Trace H (Negative) mg/dL Urine Blood Negative (Negative) Urine Nitrite Negative (Negative) Urine Bilirubin Small H (Negative) Urine Urobilinogen Normal (Normal) mg/dL Ur Leukocyte Esterase Negative (Negative) Amorphous Sediment Many H (Few) Ur Culture Indicated? NO (NO) Urine Test Negative (Negative) Attestation Statement - Attestation Attestation: I examined this patient and my medical decision-making was reviewed with the Resident Physician. I agree with the documented findings, disposition and treatment plan as described except to the extent set forth below. 22 year old shanna prsentse to the eD with complaints of abdominal pain and [facility] She does meet SIRS criteria with a WBC of 20 and HRo f 108. WE will obtain a repeat ABCT to rule out abscess formation in the abdomen and/or recurrent colitis. IVF and ABX therapy
[2017-12-07] MEDS ORDERED: Ketamine *HR* 20 MG in 0.9 % Sodium Chloride 100 ML IVPB ONE (11:11)
[2017-12-07] MEDS ORDERED: Piperacillin/Tazobactam 3.375 GM in 0.9 % Sodium Chloride Mini Bag 100 ML IVPB ONE (11:40)
[2017-12-07] MEDS ORDERED: Ondansetron 4 MG/2 ML VIAL IVP ONE (11:41)
[2017-12-07] MEDS ORDERED: Naloxone 0.4 MG/ML INJ IVP PRN (12:26)
--- NOTE | 2017-12-07 12:48 | Internal Med History&Physical ---
Date of Encounter: 12/07/17 Time of Encounter: 12:15 Internal Medicine - H&P: HPI Chief complaint: abdominal pain Admitted From: Home Plans for Post Hospital Care: Home History of present illness: Ms. Dailey is a 22 year old female with PMH of suspected Crohn's disease, morbid obesity, tobacco abuse, who presents to the ER for evaluation of diffuse abdominal pain. Pt was recently discharged from the hospital after being treated for colitis and she is currently undergoing work up for evaluation of crohn's disease as outpatient. She reports of having diffuse cramping abdominal pain associated with nausea that started yesterday afternoon. She states the pain worsened overnight which prompted her visit to the ER. She reports of being nauseous and getting no relief from Zofran. She reports of having chronic constipation. Denies any vomiting episodes or any association with food contributing to her current symptoms. She states she has not been able to tolerate anything PO since yesterday afternoon. Currently she is resting in bed and appears to be in no distress. Reports of having subjective fevers over night. Reports of being an everyday smoker (1/2ppd), started smoking at age 11. Past Med Surg Social Fam HX - Past Medical History Psychiatric history: no psych history - Past Surgical History Surgical History: non-contributory - Social History Smoking Status: Current every day smoker Smokeless Tobacco Status: No Alcohol use: occasionally Drug use: none - Family History Father Living Status: Still Living Hx Family Cancer: Yes (Skin) Hx Family Endocrine Disorder: Yes (DM) Internal Medicine - H&P: Meds RX: Escitalopram [Lexapro] 10 mg PO DAILY 10/20/17 [History] RX: Levonorgestrel [Mirena] 52 mg IY AD 10/20/17 [History] BuPROPion XL (24 HR) [Wellbutrin XL] 150 mg PO DAILY 12/07/17 [History] RX: Nicotine Patch [Nicoderm] 21 mg TD DAILY 12/07/17 [History] 3 Allergy/AdvReac Type Severity Reaction Status Date / Time No Known Allergies Allergy Verified 05/25/17 13:43 All Systems PM: A 10-system review of systems was performed and is negative for pertinent findings except as documented above in the HPI. - Constitutional Constitutional: as per HPI, fever(s), no chills, no excessive sweating, no night sweats, no weight loss - EENT Eyes: no change in vision - Cardiovascular Cardiovascular ROS IM: no chest pain, no diaphoresis, no palpitations, no syncope - Respiratory Respiratory: no cough, no dyspnea, no wheezing - Gastrointestinal Gastrointestinal: abdominal pain, constipation, nausea, no diarrhea, no dysphagia, no hematemesis, no hematochezia, no loose stools, no vomiting - Constitutional Vitals: Temp Pulse Resp BP Pulse Ox 97.7 F 89 17 138/99 97 12/07/17 09:27 12/07/17 12:34 12/07/17 12:34 12/07/17 12:34 12/07/17 12:34 General appearance: Present: A&O X 3, morbidly obese, no acute distress, answers questions appropriately - Head Head exam: Present: atraumatic, normocephalic - Eye Eye exam: Present: conjuntiva pink, sclera anicteric - Respiratory Respiratory exam: Present: CTAB. Absent: respiratory distress, wheezes - Cardiovascular Cardiovascular exam: Present: RRR, +S1, +S2. Absent: diastolic murmur, gallop, rubs, systolic murmur - GI/Abdominal GI/Abdominal exam: Present: distended (obese), normal bowel sounds, soft, no peritoneal signs. Absent: firm, guarding, tenderness - Extremities Exam Extremities exam: Present: warm, radial pulses palpable and symmetrical. Absent : calf tenderness, cyanotic, pedal edema - Neurological Exam Neurological exam: Present: alert, oriented X3 - Psychiatric Psychiatric exam: Present: normal affect, normal mood Internal Med - H&P Results - Labs CBC & Chem 7: 12/07/17 09:36 12/07/17 09:25 - Assessment and plan (1) Abdominal pain Current Visit: Yes Status: Acute Assessment and plan: CT abd/pelvis reported dilated fluid-filled loops of mid and distal small bowel representing a developing small bowel obstruction with the transition point involving the distal ileum which demonstrates focal bowel wall thickening. Likely due to inflammatory enteritis but an obstructive neoplastic lesion cannot be excluded. -Pt is not vomiting and pain better controlled after receiving pain meds in the ER. No need for NGT at this time -Surgical evaluation requested by the ER physician -I spoke with Dr. Solis (GI) and discussed the CT abd/pelvis findings with him, Dr. Solis to evaluate the pt -NPO at this time -IV abx -IV fluids -pt received Methylprednisolone in the ER, will defer to GI for continuation of systemic steroids (pt recently finished a prednisone taper) -pain control -anti-emetic support as needed Qualifiers: Abdominal location: generalized Qualified Code(s): R10.84 - Generalized abdominal pain (2) Small bowel obstruction Current Visit: Yes Status: Acute Assessment and plan: as listed above (3) Crohn's disease involving terminal ileum Current Visit: Yes Status: Chronic Assessment and plan: Pt reports of formally being diagnosed however no reports were found in her current medical records she reports of awaiting capsule endoscopy as outpatient awaiting GI consultation for further management (4) Leukocytosis Current Visit: No Status: Acute Assessment and plan: likely reactive will continue empiric IV abx IV fluids continue to closely monitor Qualifiers: Leukocytosis type: unspecified Qualified Code(s): D72.829 - Elevated white blood cell count, unspecified (5) Nausea and vomiting Current Visit: No Status: Acute Assessment and plan: anti-emetic support as needed Qualifiers: Vomiting type: unspecified Vomiting Intractability: non-intractable Qualified Code(s): R11.2 - Nausea with vomiting, unspecified (6) Morbid obesity Current Visit: No Status: Chronic (7) DVT prophylaxis Current Visit: Yes Status: Acute Assessment and plan: heparin SQ (8) Tobacco abuse Current Visit: Yes Status: Chronic Assessment and plan: smoking cessation counseling provided pt reports of trying to quit and is using nicotine patch at home nicotine supplementation therapy provided - Time Spent With Patient Total time spent is greater than 50% in coordination of care (as documented) at patient's floor/unit and/or counseling patient: Greater than 35 minutes
[2017-12-07] MEDS: 0.9 % Sodium Chloride 1,000 ML IVC SCH ×2 (13:46→23:42)
[2017-12-07] MEDS: OXYCODONE Oral CONC 10 MG/0.5 ML ORAL.SYG SL PRN ×2 (13:47→19:43)
[2017-12-07] MEDS: Ondansetron 4 MG/2 ML VIAL IVP PRN ×2 (13:48→20:53)
[2017-12-07] MEDS ORDERED: Piperacillin/Tazobactam 3.375 GM in 0.9 % Sodium Chloride Mini Bag 100 ML IVPB SCH (16:00)
[2017-12-07] MEDS: Pantoprazole 40 MG VIAL IVP SCH (17:06)
[2017-12-07] MEDS: *HR* Heparin 5,000 UNIT/ML VIAL SQ SCH (17:07)
[2017-12-07] MEDS: *HR* Promethazine 25 MG/ML VIAL IVP PRN ×2 (17:31→23:42)
[2017-12-07] MEDS: Piperacillin/Tazobactam 3.375 GM in 0.9 % Sodium Chloride Mini Bag 100 ML IVPB SCH (21:15)
[2017-12-07] MEDS ORDERED: *HR* FentaNYL (PF) 100 MCG/2 ML VIAL IVP ONE (22:45)
[2017-12-08] MEDS: Piperacillin/Tazobactam 3.375 GM in 0.9 % Sodium Chloride Mini Bag 100 ML IVPB SCH ×4 (00:02→19:55)
[2017-12-08] MEDS: OXYCODONE Oral CONC 10 MG/0.5 ML ORAL.SYG SL PRN ×5 (01:05→20:54)
[2017-12-08] MEDS: Ondansetron 4 MG/2 ML VIAL IVP PRN ×2 (04:08→23:09)
[2017-12-08 04:44] LABS: Basophils % 0.1 %; Hemoglobin 13.2 g/dL (11.5-15.4); Immature Granulocytes % 0.4 % (0-4); Lymphocytes # 1.7 K/mcL (0.6-4.6); Lymphocytes % 13.3 %; Mean Corpuscular Hemoglobin 28.2 pg (28.0-33.3); Mean Corpuscular Volume 85.5 fL (83.0-100.0); Mean Platelet Volume 9.7 fL (9.4-12.4); Monocytes # 0.9 K/mcL (0.0-1.3); Monocytes % 7.2 %; Platelet Count 356 K/mcL (140-400); Red Blood Count 4.68 M/mcL (3.82-4.97); Red Cell Distribution Width 13.2 % (11.5-14.5)
[2017-12-08 05:08] LABS: BUN/Creatinine Ratio 11 (6-26); Blood Urea Nitrogen 6 mg/dL (6-20); Carbon Dioxide 23 mEq/L (23-29); Chloride 110 mEq/L (98-107); Chol/HDL Ratio 4.5 (0-4.9); Cholesterol 154 mg/dL (< 200); Glucose 118 mg/dL (70-105); HDL Cholesterol 34 mg/dL (40-59); LDL Cholesterol,Calculated 95 mg/dL (0-99); Magnesium 1.9 mg/dL (1.6-2.6); Osmolality,Calculated 293 (280-300); Phosphorous 3.3 mg/dL (2.7-4.5); Potassium 3.2 mEq/L (3.5-5.1); Sodium 142 mEq/L (136-145); Triglycerides 127 mg/dL (< 150); eGFR For African Americans > 60 (> 60); eGFR For Non-African Americans > 60 (> 60)
[2017-12-08] MEDS: *HR* Heparin 5,000 UNIT/ML VIAL SQ SCH ×2 (05:48→17:44)
[2017-12-08] MEDS: Pantoprazole 40 MG VIAL IVP SCH ×2 (05:48→17:44)
[2017-12-08] MEDS: Nicotine 21 MG PATCH.TD24 TD SCH (09:10)
--- NOTE | 2017-12-08 09:17 | Internal Med Progress Note ---
Date of Encounter: 12/08/17 Time of Encounter: 09:17 - Assessment and plan (1) Abdominal pain Current Visit: Yes Status: Acute Assessment and plan: CT abd/pelvis reported dilated fluid-filled loops of mid and distal small bowel representing a developing small bowel obstruction with the transition point involving the distal ileum which demonstrates focal bowel wall thickening. Likely due to inflammatory enteritis but an obstructive neoplastic lesion cannot be excluded. Recently finished a Prednisone taper Received Methyprednisone in the ED Has not required NG tube during this admission Symptoms have improved with supportive care Continue symptomatic control of pain and n/v Emperic abx therapy Keep NPO GI and Surgery consulted, recommendations appreciated. Qualifiers: Abdominal location: generalized Qualified Code(s): R10.84 - Generalized abdominal pain (2) Nausea and vomiting Current Visit: No Status: Acute Assessment and plan: Possibly SBO or Crohn's disease related. anti-emetic support as needed IV fluids as patient is NPO Qualifiers: Vomiting type: unspecified Vomiting Intractability: non-intractable Qualified Code(s): R11.2 - Nausea with vomiting, unspecified (3) Crohn's disease involving terminal ileum Current Visit: Yes Status: Chronic Assessment and plan: Pt reports of formally being diagnosed however no reports were found in her current medical records she reports of awaiting capsule endoscopy as outpatient Currently complains of diarrhea Received one dose of Solu Medrol during this admission. awaiting GI consultation for further management (4) Morbid obesity Current Visit: No Status: Chronic (5) Leukocytosis Current Visit: No Status: Acute Assessment and plan: likely reactive will continue empiric IV abx IV fluids continue to closely monitor Resolving On admission was 20k and today is 12k. Qualifiers: Leukocytosis type: unspecified Qualified Code(s): D72.829 - Elevated white blood cell count, unspecified (6) Small bowel obstruction Current Visit: Yes Status: Acute (7) DVT prophylaxis Current Visit: Yes Status: Acute (8) Tobacco abuse Current Visit: Yes Status: Chronic - Time Spent With Patient Total time spent is greater than 50% in coordination of care (as documented) at patient's floor/unit and/or counseling patient: - Subjective Interval history: No acute events, Patient though does note she is having abdominal pain 6/10. Denies fevers and chills. States she is having non-bloody diarrhea. - Constitutional Vitals: Temp Pulse Resp BP Pulse Ox 97.9 F 76 15 117/78 97 12/08/17 06:18 12/08/17 06:18 12/08/17 06:18 12/08/17 06:18 12/08/17 06:18 General appearance: Present: A&O X 3, morbidly obese, no acute distress, answers questions appropriately - Head Head exam: Present: atraumatic, normocephalic - Eye Eye exam: Present: PERRL, conjuntiva pink, sclera anicteric Pupils: Present: PERRL - Neck Neck exam general surgery: Present: supple, trachea midline. Absent: lymphadenopathy - Respiratory Respiratory exam: Present: CTAB. Absent: accessory muscle use, rales, rhonchi, wheezes - Cardiovascular Cardiovascular exam: Present: RRR, +S1, +S2. Absent: diastolic murmur, gallop, rubs, systolic murmur - GI/Abdominal GI/Abdominal exam: Present: normal bowel sounds, soft, tenderness (mild TTP in epigastric region.), no peritoneal signs. Absent: distended - Extremities Exam Extremities exam: Present: warm, radial pulses palpable and symmetrical. Absent : calf tenderness, cyanotic, pedal edema - Neurological Exam Neurological exam: Present: CN II-XII intact, oriented X3, no focal deficits. Absent: pronater drift, facial droop, speech deficit - Skin Skin exam: Present: dry, intact Internal Medicine: Result - Labs CBC & Chem 7: 12/08/17 04:06 12/08/17 04:06 Labs: Short CBC 12/08/17 Range/Units 04:06 WBC 12.7 H (4.3-11.1) K/mcL Hgb 13.2 D (11.5-15.4) g/dL Hct 40.0 (35.3-44.9) % Plt Count 356 (140-400) K/mcL Neutrophils # 10.0 H (1.6-8.9) K/mcL BMP 12/08/17 04:06 Sodium 142 Potassium 3.2 L Chloride 110 H Carbon Dioxide 23 BUN 6 Creatinine 0.55 L Glucose 118 H Calcium 9.0 Consult Discharge Plan - Plan Referrals: Win Mccollum MD [Primary Care Provider] -
[2017-12-08] MEDS ORDERED: Potassium Chloride Elixir 20 MEQ/15 ML UDC PO ONE (09:19)
--- NOTE | 2017-12-08 10:11 | Gastroenterology Consult Note ---
<Isa Doyle - Last Filed: 12/08/17 10:20> Date of Encounter: 12/08/17 Time of Encounter: 09:30 - Assessment and plan (1) Crohn's disease involving terminal ileum Current Visit: Yes Status: Chronic Assessment and plan: Colonoscopy in 06/05 showed severe inflammation in terminal ileum suspicious for Crohn's disease. She has had some relief with steroids. Will start solumedrol, while inpatient, she will likely need humira as an outpatient. She was advised the importance of followup as outpatient. Dr Solis to review CT and make further recommendations. (2) Nausea and vomiting Current Visit: No Status: Acute Assessment and plan: CT shows possible SBO, she has continued nausea without vomiting. If she has recurrent vomiting or increased pain will need NGT. Qualifiers: Vomiting type: unspecified Vomiting Intractability: non-intractable Qualified Code(s): R11.2 - Nausea with vomiting, unspecified (3) SBO (small bowel obstruction) Current Visit: No Status: Acute Assessment and plan: Continue NPO, and IVF, may need NGT. Likely due to inflammation from crohn's, will start solumedrol. Surgery was consulted by hospitalist. - Time Spent With Patient Total time spent is greater than 50% in coordination of care (as documented) at patient's floor/unit and/or counseling patient: GI History of Present Illness - Data of Consult Patient: known to practice within the last 3 years Consult date: 12/08/17 Requesting Physician: Jeremias Boss MD - Consult Narrative Reason for consult: crohns disease, SBO History of present illness: Ms. Dailey is a 22 year old female with PMH of suspected Crohn's disease, morbid obesity, tobacco abuse, who presents to the ER for evaluation of diffuse abdominal pain. She was first seen by Dr Solis 06/05 for colitis, colonosocpy was suspicious for crohn;s disease. She was discharged home on prednisone then changed to Entocort. She was seen in July by Dr Solis and capsule endoscopy was ordered, asca and anca were negative. She cancelled the procedure, which has been rescheduled twice. She was seen inpt by Dr Ridley in October and again capsule endoscopy was ordered but has not been completed yet. She saw her PCP and was treated with prednisone for abdominal pain. She reports having diffuse cramping abdominal pain associated with nausea that started yesterday afternoon, pain is worse in the lower mid abdomen. She states the pain worsened overnight which prompted her visit to the ER. She reports of being nauseous and getting no relief from Zofran. She reports having 1-2 BMs a day normally but did have watery diarrhea yesterday. Denies any vomiting episodes or any association with food contributing to her current symptoms. She states she has not been able to tolerate anything PO since yesterday. CT of the abdomen showed dilated fluid-filled loops of mid and distal small bowel. This represents a developing small bowel obstruction with the transition point involving the distal ileum which demonstrates focal bowel wall thickening. This most likely is due to inflammatory enteritis but an obstructive neoplastic lesion cannot be excluded. Distended gallbladder likely due to a prolonged fasting state. Right ovarian cyst, likely physiologic. TPMT was cheked and was normal. Colonoscopy: 08/06 diffuse severe inflammation at the ileocecal valve Anticoagulants: heparin 0548 Past Med Surg Social Fam HX - Past Medical History Medical history: other Psychiatric history: no psych history - Past Surgical History Surgical History: non-contributory - Social History Smoking Status: Current every day smoker Smokeless Tobacco Status: No Alcohol use: occasionally Drug use: none - Family History Father Living Status: Still Living Hx Family Cancer: Yes (Skin) Hx Family Endocrine Disorder: Yes (DM) Review of Systems: GI: as per [facility] GENERAL: denies fever, has some chills EYES: denies yellow discoloration ENT: denies pain with swallowing or difficulty swallowing CARDIO: denies chest pain, palpitations RESP: No Shortness of breath with exertion : denies change in color of urine NEURO: denies any weakness HEME: Denies any bruising MS: denies joint pain, joint swelling or back pain. DERM: denies rash or itching PSYCH: history of anxiety or depression - Constitutional Vitals: Temp Pulse Resp BP Pulse Ox 97.9 F 76 15 117/78 97 12/08/17 06:18 12/08/17 06:18 12/08/17 06:18 12/08/17 06:18 12/08/17 09:05 Exam: CONSTITUTIONAL:~alert, no acute distress.~HEAD:~normocephalic.~EYES:~no jaundice.~NECK:~no obvious swelling.~HEART:~regular rate and rhythm, no murmurs. ~LUNGS:~bilateral good air entry.~ABDOMEN:~non distended, soft, diffusely tender , no masses palpable, no organomegaly, obese.~RECTAL EXAM:~Deferred.~EXTREMITIES :~no clubbing, cyanosis or edema.~SKIN:~multiple tattoos, scars noted to right arm, no stigmata of chronic liver disease.~NEUROLOGIC:~no obvious focal defect.~ ~~~ Results - Labs CBC & Chem 7: 12/08/17 04:06 12/08/17 04:06 Labs: Last Result ESR 44 mm/hr (0-15) H 12/07/17 09:36 Calcium 9.0 mg/dL (8.6-10.3) 12/08/17 04:06 C-Reactive Protein 17 mg/L (Less than 10) H 12/07/17 09:25 Triglycerides 127 mg/dL (< 150) 12/08/17 04:06 Entire Visit Hgb 13.2 g/dL (11.5-15.4) D 12/08/17 04:06 Hct 40.0 % (35.3-44.9) 12/08/17 04:06 Total Bilirubin 0.6 mg/dL (0.3-1.0) 12/07/17 09:25 AST 22 Units/L (13-39) 12/07/17 09:25 ALT 46 Units/L (7-52) 12/07/17 09:25 Lipase 13 Units/L (11-82) 12/07/17 09:25 Consult Discharge Plan - Plan Referrals: Win Mccollum MD [Primary Care Provider] - <Cj Solis - Last Filed: 12/08/17 17:51> Date of Encounter: 12/08/17 Time of Encounter: 17:00 - Time Spent With Patient Total time spent is greater than 50% in coordination of care (as documented) at patient's floor/unit and/or counseling patient: GI History of Present Illness - Data of Consult Requesting Physician: Jeremias Boss MD - Consult Narrative History of present illness: Ms. Dailey is a 22 year old female - Constitutional Vitals: Temp Pulse Resp BP Pulse Ox 97.6 F 80 15 119/81 96 12/08/17 13:54 12/08/17 13:54 12/08/17 13:54 12/08/17 13:54 12/08/17 13:54 Results - Labs CBC & Chem 7: 12/08/17 04:06 12/08/17 04:06 Labs: Last Result ESR 44 mm/hr (0-15) H 12/07/17 09:36 Calcium 9.0 mg/dL (8.6-10.3) 12/08/17 04:06 C-Reactive Protein 17 mg/L (Less than 10) H 12/07/17 09:25 Triglycerides 127 mg/dL (< 150) 12/08/17 04:06 Entire Visit Hgb 13.2 g/dL (11.5-15.4) D 12/08/17 04:06 Hct 40.0 % (35.3-44.9) 12/08/17 04:06 Total Bilirubin 0.6 mg/dL (0.3-1.0) 12/07/17 09:25 AST 22 Units/L (13-39) 12/07/17 09:25 ALT 46 Units/L (7-52) 12/07/17 09:25 Lipase 13 Units/L (11-82) 12/07/17 09:25 - Attending Attestation I have personally performed a face to face evaluation on this patient. I have reviewed and agree with the care plan. History and Exam by me shows: Patient seen CAT scan reviewed complaining of cramping abdominal pain but there is passing gas now and had the liquidy bowel movement today. Impression: Patient with Crohn disease of the terminal ileum. Currently on IV steroid Recommendation: Continue IV steroid patient will follow with me as an outpatient and will start on biologic treatment if remains symptomatic then she may end up needing terminal ileum resection done
[2017-12-08] MEDS ORDERED: Potassium Chloride 40 MEQ, Lidocaine 1% 2 ML in D5% in Water 500 ML IVPB ONE (10:42)
[2017-12-08] MEDS: methylPREDNISolone 125 MG/2 ML VIAL IVP SCH (11:34)
[2017-12-08] MEDS ORDERED: OXYCODONE Oral CONC 10 MG/0.5 ML ORAL.SYG SL ONE (11:56)
[2017-12-08] MEDS: 0.9 % Sodium Chloride 1,000 ML IVC SCH (12:09)
[2017-12-09] MEDS: OXYCODONE Oral CONC 10 MG/0.5 ML ORAL.SYG SL PRN ×5 (01:59→20:18)
[2017-12-09] MEDS: 0.9 % Sodium Chloride 1,000 ML IVC SCH ×2 (04:29→08:23)
[2017-12-09] MEDS: Piperacillin/Tazobactam 3.375 GM in 0.9 % Sodium Chloride Mini Bag 100 ML IVPB SCH ×3 (04:29→20:19)
[2017-12-09] MEDS: *HR* Promethazine 25 MG/ML VIAL IVP PRN (04:29)
[2017-12-09 05:29] LABS: Basophils % 0.1 %; Hematocrit 35.6 % (35.3-44.9); Immature Granulocytes % 0.6 % (0-4); Lymphocytes # 2.9 K/mcL (0.6-4.6); Lymphocytes % 33.2 %; Mean Corpuscular Volume 87.5 fL (83.0-100.0); Mean Platelet Volume 9.8 fL (9.4-12.4); Monocytes # 0.5 K/mcL (0.0-1.3); Monocytes % 5.5 %; Neutrophils # 5.3 K/mcL (1.6-8.9); Platelet Count 250 K/mcL (140-400); Red Blood Count 4.07 M/mcL (3.82-4.97); Red Cell Distribution Width 12.8 % (11.5-14.5); Segmented Neutrophils % 60.6 %
[2017-12-09 05:37] LABS: Hemoglobin 11.4 g/dL (11.5-15.4)
[2017-12-09 05:49] LABS: BUN/Creatinine Ratio 12 (6-26); Blood Urea Nitrogen 6 mg/dL (6-20); Calcium 8.3 mg/dL (8.6-10.3); Carbon Dioxide 25 mEq/L (23-29); Chloride 110 mEq/L (98-107); Glucose 76 mg/dL (70-105); Osmolality,Calculated 288 (280-300); Potassium 3.1 mEq/L (3.5-5.1); Sodium 141 mEq/L (136-145); eGFR For African Americans > 60 (> 60); eGFR For Non-African Americans > 60 (> 60)
[2017-12-09] MEDS: Pantoprazole 40 MG VIAL IVP SCH ×2 (06:12→17:18)
[2017-12-09] MEDS: *HR* Heparin 5,000 UNIT/ML VIAL SQ SCH ×2 (06:12→17:18)
[2017-12-09] MEDS: methylPREDNISolone 125 MG/2 ML VIAL IVP SCH (08:19)
[2017-12-09] MEDS: Nicotine 21 MG PATCH.TD24 TD SCH (08:19)
[2017-12-09] MEDS: BuPROPion XL (24 HR) 150 MG TABLET PO SCH (08:19)
--- NOTE | 2017-12-09 12:31 | Internal Med Progress Note ---
Date of Encounter: 12/09/17 Time of Encounter: 12:25 - Assessment and plan (1) Abdominal pain Current Visit: Yes Status: Acute Assessment and plan: CT abd/pelvis reported dilated fluid-filled loops of mid and distal small bowel representing a developing small bowel obstruction with the transition point involving the distal ileum which demonstrates focal bowel wall thickening. Likely due to inflammatory enteritis but an obstructive neoplastic lesion cannot be excluded. Has not required NG tube during this admission Continue symptomatic control of pain and n/v Continue Zosyn Keep NPO GI and Surgery consulted, recommendations appreciated. - Continue Solu Medrol - Advancing diet as tolerated; she is tolerating clear liquid diet today, Hold IV fluids. - Patient requests more pain medication. I am concerned because clinically she is improving and ambulating in the room, and looks significantly better than yesterday. Increasing opiates may be more harmful since patient has possibly early developing SBO. I discussed this with patient at length. Patient would like stronger medication but I am uncomfortable doing so. The main treatment of controlling pain will be controlling enteritis/Crohn's disease which the treatment acutely is Solu Medrol. Qualifiers: Abdominal location: generalized Qualified Code(s): R10.84 - Generalized abdominal pain (2) Crohn's disease involving terminal ileum Current Visit: Yes Status: Chronic Assessment and plan: Pt reports of formally being diagnosed however no reports were found in her current medical records she reports of awaiting capsule endoscopy as outpatient Currently complains of diarrhea GI following, on Solu Medrol 60 mg IV daily. (3) Morbid obesity Current Visit: No Status: Chronic (4) Leukocytosis Current Visit: No Status: Acute Assessment and plan: likely reactive from Crohns disease, possibly infective from enteritis. continue to closely monitor Resolved, continue Zosyn, continue Solu Medrol On admission was 20k and now within normal limits. Qualifiers: Leukocytosis type: unspecified Qualified Code(s): D72.829 - Elevated white blood cell count, unspecified (5) Small bowel obstruction Current Visit: Yes Status: Acute Assessment and plan: as listed above Careful to avoid over use of opiate medication. If symptoms don't improve she may need an NG tube. (6) Tobacco abuse Current Visit: Yes Status: Chronic Assessment and plan: smoking cessation counseling provided pt reports of trying to quit and is using nicotine patch at home nicotine supplementation therapy provided (7) DVT prophylaxis Current Visit: Yes Status: Acute Assessment and plan: heparin SQ - Time Spent With Patient Total time spent is greater than 50% in coordination of care (as documented) at patient's floor/unit and/or counseling patient: - Subjective Interval history: Patient in room with significant other. She is ambulating around. While entering the room she is peasant, no acute distress. She states she is having abdominal pain still. Able to tolerate diet. She is still having some non- bloody diarrhea. - Constitutional Vitals: Temp Pulse Resp BP Pulse Ox 97.8 F 74 15 110/76 99 12/09/17 10:02 12/09/17 10:02 12/09/17 10:02 12/09/17 10:02 12/09/17 10:02 General appearance: Present: A&O X 3, morbidly obese, no acute distress, answers questions appropriately - Head Head exam: Present: atraumatic, normocephalic - Eye Eye exam: Present: PERRL, conjuntiva pink, sclera anicteric Pupils: Present: PERRL - Neck Neck exam general surgery: Present: supple, trachea midline. Absent: lymphadenopathy - Respiratory Respiratory exam: Present: CTAB. Absent: accessory muscle use, rales, rhonchi, wheezes - Cardiovascular Cardiovascular exam: Present: RRR, +S1, +S2. Absent: diastolic murmur, gallop, rubs, systolic murmur - GI/Abdominal GI/Abdominal exam: Present: normal bowel sounds, soft, tenderness, no peritoneal signs. Absent: distended - Extremities Exam Extremities exam: Present: warm, radial pulses palpable and symmetrical. Absent : calf tenderness, cyanotic, pedal edema - Neurological Exam Neurological exam: Present: CN II-XII intact, oriented X3, no focal deficits. Absent: pronater drift, facial droop, speech deficit - Skin Skin exam: Present: dry, intact Internal Medicine: Result - Labs CBC & Chem 7: 12/09/17 04:58 12/09/17 04:58 Labs: Short CBC 12/09/17 Range/Units 04:58 WBC 8.7 (4.3-11.1) K/mcL Hgb 11.4 L D (11.5-15.4) g/dL Hct 35.6 (35.3-44.9) % Plt Count 250 (140-400) K/mcL Neutrophils # 5.3 (1.6-8.9) K/mcL BMP 12/09/17 04:58 Sodium 141 Potassium 3.1 L Chloride 110 H Carbon Dioxide 25 BUN 6 Creatinine 0.51 L Glucose 76 Calcium 8.3 L Consult Discharge Plan - Plan Referrals: Win Mccollum MD [Primary Care Provider] -
--- NOTE | 2017-12-09 16:26 | Event Note ---
Date of Encounter: 12/09/17 Time of Encounter: 16:15 This is a delayed note: Surgical consultation was placed with al, 12/07/2017, after patient presented to the Emergency Department with recurrent abdominal pain. The patient had previously presented with complaints abdominal pain, nausea and vomiting, 10/20/17. CT at that time demonstrated circumferential mural thickening of the terminal ileum with surrounding fat stranding. Partial obstruction of the small bowel with multiple air and fluid-filled loops was described. A prior CT in May 2017 showed similar findings. The patient has a presumptive diagnosis of Crohn's disease and is under the care of Drs. Solis and Khai, [facility]. . Further care and management was deferred to these physicians with surgery deferred until patient developed complications such as obstruction, bowel obstruction or perforation. On return to the emergency department, 12/07/17, CT abd/pelvis showed dilated fluid filled loops of mid to distal small bowel. A transition point just proximal to the terminal ileum was described with focal bowel wall thickening in the distal ileum. Surgery was consulted as was [facility]. Treatment/management was deferred to Drs. Solis and Khai. This was discussed with Dr. Saez on 12/07/2017, and Dr Brown, 12/08/2017 and . The patient appears to be responding to medical therapy initiated by [facility]. Surgery not indicated at this time.
[2017-12-10] MEDS: OXYCODONE Oral CONC 10 MG/0.5 ML ORAL.SYG SL PRN ×4 (00:25→12:58)
[2017-12-10] MEDS: Piperacillin/Tazobactam 3.375 GM in 0.9 % Sodium Chloride Mini Bag 100 ML IVPB SCH ×2 (04:04→11:32)
[2017-12-10] MEDS: Pantoprazole 40 MG VIAL IVP SCH (05:15)
[2017-12-10] MEDS: *HR* Heparin 5,000 UNIT/ML VIAL SQ SCH (05:15)
[2017-12-10] MEDS: BuPROPion XL (24 HR) 150 MG TABLET PO SCH (07:36)
[2017-12-10] MEDS: methylPREDNISolone 125 MG/2 ML VIAL IVP SCH (07:37)
[2017-12-10] MEDS: Nicotine 21 MG PATCH.TD24 TD SCH (07:37)
[2017-12-10 07:56] LABS: Basophils % 0.3 %; Eosinophils % 0.1 %; Hematocrit 32.4 % (35.3-44.9); Hemoglobin 11.4 g/dL (11.5-15.4); Lymphocytes # 3.5 K/mcL (0.6-4.6); Lymphocytes % 32.4 %; Mean Corpuscular HGB Conc 35.2 g/dL (31.6-35.5); Mean Corpuscular Hemoglobin 30.1 pg (28.0-33.3); Mean Corpuscular Volume 85.5 fL (83.0-100.0); Mean Platelet Volume 9.9 fL (9.4-12.4); Monocytes # 0.6 K/mcL (0.0-1.3); Monocytes % 5.7 %; Neutrophils # 6.5 K/mcL (1.6-8.9); Platelet Count 260 K/mcL (140-400); Red Blood Count 3.79 M/mcL (3.82-4.97); Red Cell Distribution Width 12.8 % (11.5-14.5); Segmented Neutrophils % 60.5 %
[2017-12-10 09:49] LABS: BUN/Creatinine Ratio 8 (6-26); Blood Urea Nitrogen 5 mg/dL (6-20); Calcium 8.4 mg/dL (8.6-10.3); Carbon Dioxide 26 mEq/L (23-29); Chloride 110 mEq/L (98-107); Glucose 80 mg/dL (70-105); Osmolality,Calculated 288 (280-300); Sodium 141 mEq/L (136-145); eGFR For African Americans > 60 (> 60); eGFR For Non-African Americans > 60 (> 60)
--- NOTE | 2017-12-10 12:04 | Gastroenterology Progress Note ---
Date of Encounter: 12/10/17 Time of Encounter: 11:35 - Assessment and plan (1) Crohn's disease involving terminal ileum Current Visit: Yes Status: Chronic Assessment and plan: Pt has improved pain on solumedrol. She can be discharged on po steroids. Will follow up as an outpatient to start on humira. (2) SBO (small bowel obstruction) Current Visit: No Status: Acute Assessment and plan: seen by surgery, and intervention not indicated. pt is symptomatically improved and tolerating diet - Time Spent With Patient Total time spent is greater than 50% in coordination of care (as documented) at patient's floor/unit and/or counseling patient: - Subjective Interval history: Patient asleep in bed. She denies any nausea. She states abdominal pain is improved. She has occasional diarrhea, denies bloody or black BM. She has been tolerating solid foods. - Constitutional Vitals: Temp Pulse Resp BP Pulse Ox 98.0 F 76 16 137/90 94 12/10/17 08:26 12/10/17 08:26 12/10/17 08:26 12/10/17 08:26 12/10/17 08:26 Exam: CONSTITUTIONAL:~alert, no acute distress.~HEAD:~normocephalic.~EYES:~no jaundice.~NECK:~no obvious swelling.~HEART:~regular rate and rhythm, no murmurs. ~LUNGS:~bilateral good air entry.~ABDOMEN:~non distended, soft, diffusely tender , obese~RECTAL EXAM:~Deferred.~EXTREMITIES:~no clubbing, cyanosis or edema.~SKIN :~no stigmata of chronic liver disease.~NEUROLOGIC:~no obvious focal defect.~~~~ Results - Labs CBC & Chem 7: 12/10/17 07:20 12/10/17 07:20 Labs: Last Result ESR 44 mm/hr (0-15) H 12/07/17 09:36 Calcium 8.4 mg/dL (8.6-10.3) L 12/10/17 07:20 C-Reactive Protein 17 mg/L (Less than 10) H 12/07/17 09:25 Triglycerides 127 mg/dL (< 150) 12/08/17 04:06 Entire Visit Hgb 11.4 g/dL (11.5-15.4) L 12/10/17 07:20 Hct 32.4 % (35.3-44.9) L 12/10/17 07:20 Total Bilirubin 0.6 mg/dL (0.3-1.0) 12/07/17 09:25 AST 22 Units/L (13-39) 12/07/17 09:25 ALT 46 Units/L (7-52) 12/07/17 09:25 Lipase 13 Units/L (11-82) 12/07/17 09:25 Consult Discharge Plan - Plan Referrals: Win Mccollum MD [Primary Care Provider] -
[2017-12-10 16:12] VITALS: BP 130/76
--- NOTE | 2017-12-10 16:55 | Discharge Summary ---
- NOTES TO OUTPATIENT PROVIDER Notes to Outpatient Provider: Follow-up with gastroenterology. Patient aware that she is to have outpatient follow-up and taper steroids and plan to start [place] at time of office visit. Orders not resulted at time of discharge: Pending orders 12/10/17 12:42 QuantiFERON-TB Gold In-Tube Routine 12/11/17 04:00 BMP [Basic Metabolic Panel] AM 0400 Complete Blood Count [HEME] AM 0400 Date of Encounter: 12/10/17 Time of Encounter: 16:52 - Discharge Diagnosis (1) Abdominal pain Priority: Primary Status: Acute Qualifiers: Abdominal location: generalized Qualified Code(s): R10.84 - Generalized abdominal pain (2) Crohn's disease involving terminal ileum Priority: Secondary Status: Chronic (3) Morbid obesity Priority: Secondary Status: Chronic (4) Leukocytosis Priority: Secondary Status: Acute Qualifiers: Leukocytosis type: unspecified Qualified Code(s): D72.829 - Elevated white blood cell count, unspecified (5) Small bowel obstruction Priority: Secondary Status: Acute (6) Tobacco abuse Priority: Secondary Status: Chronic (7) DVT prophylaxis Priority: Secondary Status: Acute Hospital course: Ms. Dailey is a 22 year old female with PMH of suspected Crohn's disease, morbid obesity, tobacco abuse, who presents to the ER for evaluation of diffuse abdominal pain. Pt was recently discharged from the hospital after being treated for colitis and she is currently undergoing work up for evaluation of crohn's disease as outpatient. She reports of having diffuse cramping abdominal pain associated with nausea that started yesterday afternoon. She states the pain worsened overnight which prompted her visit to the ER. She reports of being nauseous and getting no relief from Zofran. Patient was not able to tolerate PO. A CT abdomen pelvis showed dilated fluid-filled loops of mid and distal small bowel likely developing a small bowel obstruction. Showed focal bowel wall thickening likely due to inflammatory enteritis. Surgery was consulted and Gastroenterology as well. Patient was placed on bowel rest and Zosyn empirically. She had leukocytosis but afebrile. Leukocytosis resolved. She was given Solu Medrol and also advanced diet. Patient pain and diet improved. Surgery deemed this was non-surgerical candidate. Since this was Crohn's disease most likely, antibiotics were discontinued. Overall clinically did well, and she is discharged in stable condition with steroid taper, and is to be followed-up in GI office to start Humira. She agrees to this plan. - Time Spent with Patient Total time spent providing and/or coordinating discharge services: - Discharge Medications Home Medications: Levonorgestrel [Mirena] 52 mg IY AD 10/20/17 [History] BuPROPion XL (24 HR) [Wellbutrin Xl] 150 mg PO DAILY 12/07/17 [History] Nicotine Patch [Nicoderm] 21 mg TD DAILY 12/07/17 [History] predniSONE [PredniSONE] See Taper PO DAILY #30 tablet 12/10/17 [Rx] Allergies/Adverse Reactions: 3 Allergy/AdvReac Type Severity Reaction Status Date / Time No Known Allergies Allergy Verified 05/25/17 13:43 Date of admission: 12/07/17 17:45 Primary care physician: Win Mccollum MD Discharging clinician: Jeremias Boss - Constitutional Vitals: Temp Pulse Resp BP Pulse Ox 97.9 F 69 16 130/76 97 12/10/17 16:07 12/10/17 16:07 12/10/17 16:07 12/10/17 16:07 12/10/17 16:07 General appearance: Present: A&O X 3, morbidly obese, no acute distress, answers questions appropriately - Head Head exam: Present: atraumatic, normocephalic - Eye Eye exam: Present: PERRL, conjuntiva pink, sclera anicteric Pupils: Present: PERRL - Neck Neck exam general surgery: Present: supple, trachea midline. Absent: lymphadenopathy - Respiratory Respiratory exam: Present: CTAB. Absent: accessory muscle use, rales, rhonchi, wheezes - Cardiovascular Cardiovascular exam: Present: RRR, +S1, +S2. Absent: diastolic murmur, gallop, rubs, systolic murmur - GI/Abdominal GI/Abdominal exam: Present: normal bowel sounds, soft, no peritoneal signs. Absent: distended, tenderness - Extremities Exam Extremities exam: Present: warm, radial pulses palpable and symmetrical. Absent : calf tenderness, cyanotic, pedal edema - Neurological Exam Neurological exam: Present: CN II-XII intact, oriented X3, no focal deficits. Absent: pronater drift, facial droop, speech deficit - Skin Skin exam: Present: dry, intact - Patient Status Disposition: Home, Self-Care Condition: Good Functional capacity at discharge: independent ambulation Overall status at discharge: patient is back to baseline - Discharge Instructions Follow Up With: Win Mccollum MD [Primary Care Provider] - - Diet and Activity Activity: increase activity as tolerated Diet: advance to your usual diet
[2017-12-14 11:18] LABS: QuantiFERON Mitogen minus NIL 5.09 IU/mL
[2017-12-15 06:18] LABS: QuantiFERON NIL 0.23 IU/mL; QuantiFERON-TB Gold In-Tube NEGATIVE (Negative)
== END 2017-12-10 17:30 | disposition home or self-care (01) | DRG 245 ==
LOC: 3ANU 09:20 → EMEROO 09:20 → 3ANU 12:35 → SUATTDRO 17:45
PROVIDERS: ADMIT Internal Medicine; ATTEND Student in an Organized Health Care Education/Training Program